=== PATIENT | male | born 1940 | race Caucasian/White ===

== ENCOUNTER 2017-03-16 11:52 | Inpatient (IN) ==
[2017-03-16] MEDS ORDERED: NS 1,000 ML IV ONE (12:24)
[2017-03-16] MEDS ORDERED: NS 500 ML IV ONE (12:24)
[2017-03-16] MEDS ORDERED: EPINEPHRINE 8 MG in D5W 250 ML IV SCH (12:30)
[2017-03-16] MEDS ORDERED: PITRESSIN 40 UNIT in NS 100 ML IV SCH (12:30)
--- NOTE | 2017-03-16 12:45 | EKG Report ---
Test Performed on : 03/16/2017 12:31:18 PM Test Reason : No Order [employer] Blood Pressure : / mmHG Vent. Rate : 218 BPM Atrial Rate : 220 BPM P-R Int : 000 ms QRS Dur : 062 ms QT Int : 184 ms P-R-T Axes : 000 072 -09 degrees QTc Int : 350 ms Atrial fibrillation. with rapid ventricular response. with premature ventricular or aberrantly condu cted complexes. ST \T\ T wave abnormality, consider inferior ischemia Abnormal ECG When compared with ECG of 16-MAR-2017 12:30, (Unconfirmed) Nonspecific T wave abnormality now evident in Anterolateral leads Unconfirmed Result
[2017-03-16] MEDS ORDERED: LIDOCAINE 2 GM/D5W 2 GM/500 ML IV.SOLN IV SCH (13:00)
[2017-03-16] MEDS: LEVOPHED 8 MG in D5 1/2 NS 250 ML IV SCH (13:00)
[2017-03-16] MEDS ORDERED: STERILE WATER INJ. ONE (13:07)
[2017-03-16] MEDS ORDERED: NORCURON ONE (13:07)
--- NOTE | 2017-03-16 13:11 | Diag Imaging Result Doc PS360 ---
EXAM: CHEST-PORTABLE HISTORY: ventilator TECHNIQUE: Portable supine AP COMPARISON: None. FINDINGS: There is an endotracheal tube with its tip located 3 cm above the gladys. The left lung is well expanded and clear except for granuloma in the mid lung. There are dense infiltrates in the mid and lower right lung. The heart is not enlarged. The vessels are not distended. IMPRESSION: Endotracheal tube in good position. Dense infiltrates in the lower right lung. Electronically signed by Jackson Langley 03/16/2017 1:09 PM
[2017-03-16] MEDS ORDERED: ZITHROMAX 500 MG/NS 500 MG/250 ML IVPB IV ONE (13:43)
[2017-03-16] MEDS ORDERED: ROCEPHIN 2 GM/NS 2 GM/50 ML IVPB IV ONE (13:43)
[2017-03-16 13:57] LABS: BASO% 0.1 % (0.0-0.8); EOS# 0.01 X1000 (0.0-0.7); EOS% 0.1 % (0.0-10.0); HEMATOCRIT 43.3 % (42.0-52.0); HEMOGLOBIN 13.3 g/dL (14.0-18.0); LYMPH# 0.76 X1000 (1.2-3.4); LYMPH% 8.1 % (20.5-51.1); MANUAL DIFF NEEDED? YES; MCH 29.8 PG (27-31); MCHC 30.7 g/dL (33-37); MCV 97.1 FL (81-99); MONO# 0.94 X1000 (0.11-0.59); MPV 11.8 FL (7.4-10.4); NEUT% 81.7 % (42.2-75.2); PLT 211 X1000 (130-400); RBC 4.46 XMIL (4.7-6.1)
[2017-03-16] MEDS ORDERED: NS IV SCH (14:00)
[2017-03-16] MEDS ORDERED: NORCURON IV SCH (14:00)
[2017-03-16] MEDS ORDERED: NS ONE (14:00)
[2017-03-16] MEDS ORDERED: LIDOCAINE SYRINGE ONE (14:00)
[2017-03-16] MEDS ORDERED: CORDARONE ONE (14:00)
[2017-03-16 14:01] LABS: INR 1.5; PROTIME 16.2 Seconds (9.2-11.7); PTT 34.9 Seconds (22.0-36.0)
[2017-03-16 14:07] LABS: BANDS 36 % (0-1); LYMPHS 11 % (21-51)
--- NOTE | 2017-03-16 14:33 | PROVIDER DOCUMENTATION ---
This chart was entered by Onesimo Campos Scribe, acting as scribe for Andrew Dutton MD. HPI-Critical Care - General Chief Complaint: Shortness of Breath Stated Complaint: respiratory distress Time Seen by Provider: 03/16/17 11:52 Patient arrived via EMS?: Yes Source: EMS, jail records Unable to obtain history due to:: urgency (due to patient condition) Allergies/Adverse Reactions: Allergies Allergy/AdvReac Type Severity Reaction Status Date / Time diazepam [From Valium] Allergy Unknown Verified 03/16/17 13:34 - History of Present Illness-Critical Care Nature of Presenting Problem: Per EMS, patient was brought in from [facility]. He was found unresponsive. He was breathing around 50 times a minute. He was tachycardiac. He was placed on NRB and brought in by EMS. History is unable to be taken due to patient's condition and urgency of situation. Location of Pain/Injury: reports: none Severity in ED: reports: severe Onset/Duration: reports: unsure Timing: reports: still present, getting worse EMS Initial Findings:: unresponsive Pre-hospital Treatment: Initiated oxygen Associated Symptoms: reports: shortness of breath, other (unresponsive) Loss of Consciousness: still comatose Improves Condition (Modifying Factors): improves with: nothing Recently Seen Here or By Another Healthcare Provider: No Review of Systems - Adult - REVIEW OF SYSTEMS - ADULT ROS:: unobtainable per condition Constitutional: reports: see HPI Eyes: reports: see HPI Ears, Nose, Mouth & Throat: reports: see HPI Cardiovascular: reports: see HPI Respiratory: reports: shortness of breath Gastrointestinal: denies: diarrhea, vomiting Genitourinary: reports: see HPI Musculoskeletal: reports: see HPI Integumentary: reports: see HPI Neurological: reports: see HPI Psychiatric: reports: see HPI Endocrine: reports: see HPI Hematologic/Lymphatic: reports: see HPI Allergic/Immunologic: reports: see HPI Past History - Adult - PAST MEDICAL HISTORY-ADULT Review of Records: reports: Nursing Assessment Review, Medications Reviewed Cardiovascular: reports: blood clots, other (peripheral edema) Neurological: reports: dementia Psychiatric: reports: psychiatric problems - PRIOR SURGERIES/PROCEDURES Surgical/Procedure History: reports: other (unknown) - IMMUNIZATION STATUS Childhood Immunizations: See Nurse Assessment Flu Vaccine: See Nurse Assessment - FAMILY HISTORY Family History: reviewed, not pertinent - SOCIAL HISTORY Living Situation: care facility Physical Exam-General - PHYSICAL EXAM-ADULT Exam Limited by: patient condition Initial Vital Signs Reviewed: Yes - CONSTITUTIONAL General Appearance: severe distress, other (unresponsive) - EYES Eyes: pink conjunctivae. negative: anisocoria, pale conjunctivae - HEAD, EARS, NOSE, MOUTH & THROAT HENMT: normocephalic/atraumatic, other (dry oral mucosa) - RESPIRATORY Respiratory: respiratory distress (severe), retractions, increased rate (in the 50s) - CARDIOVASCULAR Cardiovascular: no gallop, tachycardia - GASTROINTESTINAL (ABDOMEN) Abdominal Exam: non tender, soft - MUSCULOSKELETAL Extremity: no pedal edema, slow capillary refill. negative: erythema - SKIN Integumentary: cyanosis, pallor - NEUROLOGIC Neurologic: other (unable to test due to patient condition) - PSYCHIATRIC Psych/Mental Status: other (unresponsive) Progress - PLAN OF CARE/RESULTS Progress/Plan/Lab Results: Vital Signs - 8 hr 03/16/17 12:00 Pulse Rate 149 H Respiratory Rate 51 H Blood Pressure 73/45 O2 Sat by Pulse Oximetry 82 L Laboratory Results - last 24 hr 03/16/17 03/16/17 03/16/17 13:41 13:41 13:41 WBC 9.41 RBC 4.46 L Hgb 13.3 L Hct 43.3 MCV 97.1 MCH 29.8 MCHC 30.7 L RDW Std Deviation 17.7 H Plt Count 211 MPV 11.8 H Neut % (Auto) 81.7 H Lymph % (Auto) 8.1 L Robertson % (Auto) 10.0 H Eos % (Auto) 0.1 Baso % (Auto) 0.1 Neut # (Auto) 7.69 H Lymph # (Auto) 0.76 L Robertson # (Auto) 0.94 H Eos # (Auto) 0.01 Baso # (Auto) 0.01 Segmented Neutrophils 46 Band Neutrophils 36 H Lymphocytes 11 L Metamyelocytes 7.0 PT INR PTT (Actin FS) D-Dimer 1.47 H Troponin T 0.094 H 03/16/17 13:41 WBC RBC Hgb Hct MCV MCH MCHC RDW Std Deviation Plt Count MPV Neut % (Auto) Lymph % (Auto) Robertson % (Auto) Eos % (Auto) Baso % (Auto) Neut # (Auto) Lymph # (Auto) Robertson # (Auto) Eos # (Auto) Baso # (Auto) Segmented Neutrophils Band Neutrophils Lymphocytes Metamyelocytes PT 16.2 H INR 1.50 PTT (Actin FS) 34.9 D-Dimer Troponin T Orders Category Date Time Status Calhoun Cath Insertion ORDERED Care 03/16/17 12:24 Active IV Insertion ORDERED Care 03/16/17 12:24 Completed Intake and Output-Strict ORDERED Care 03/16/17 12:24 Active Notify MD/PA/FATMATA for exam NOW Care 03/16/17 12:24 Active Repeat Vital Signs .Blood Pressure Care 03/16/17 12:24 Active Repeat Vital Signs .Heart Rate Care 03/16/17 12:24 Active Repeat Vital Signs .Oxygen Saturation Care 03/16/17 12:24 Active Repeat Vital Signs .Respiratory Rate Care 03/16/17 12:24 Active Repeat Vital Signs .Temp Care 03/16/17 12:24 Active CHEST-PORTABLE [RAD] Stat Exams 03/16/17 12:50 Completed CTA [ANGIOGRAM/PULMONARY ARTERIES] [CT] Stat Exams 03/16/17 12:48 Ordered BLOOD CULTURE [BLDCUL] Stat Lab 03/16/17 12:40 Results CBC WITH DIFF [HEME] Stat Lab 03/16/17 13:41 Completed COMPREHENSIVE METABOLIC PANEL [CHEM] Stat Lab 03/16/17 13:41 Received D-DIMER [CHEM] Stat Lab 03/16/17 13:41 Completed LACTATE, PLASMA [CHEM] Stat Lab 03/16/17 13:41 Received PROTIME WITH INR [COAG] Stat Lab 03/16/17 13:41 Completed PTT [COAG] Stat Lab 03/16/17 13:41 Completed TROPONIN T Stat Lab 03/16/17 13:41 Completed 0.9% Sodium Chloride Inj [Ns] 1,000 ml Med 03/16/17 12:24 Discontinued IV As Directed 0.9% Sodium Chloride Inj [Ns] 100 ml Med 03/16/17 12:30 Active Vasopressin [Pitressin] 40 unit IV As Directed 0.9% Sodium Chloride Inj [Ns] 500 ml Med 03/16/17 12:24 Discontinued IV 999 mls/hr 0.9% Sodium Chloride Inj [Ns] 80 ml Med 03/16/17 14:00 Active Vecuronium [Norcuron] 20 mg IV As Directed Azithromycin 500 mg/Ns [Zithromax 500 mg/Ns] Med 03/16/17 13:43 Active 500 mg in 250 ml IV NOW CefTRIAXONE 2 GM/NS [Rocephin 2 gm/Ns] Med 03/16/17 13:43 Discontinued 2 gm in 50 ml IV NOW Dextrose 5%-0.45% NaCl Inj [D5 1/2 Ns] 250 ml Med 03/16/17 12:30 Active Norepinephrine [Levophed] 8 mg IV As Directed Dextrose 5%-Water Inj [D5w] 250 ml Med 03/16/17 12:30 Active Epinephrine 8 mg IV As Directed Lidocaine 2 gm/D5w Med 03/16/17 13:00 Active 2 gm in 500 ml IV As Directed Vecuronium [Norcuron] Med 03/16/17 13:07 Discontinued 10 mg .ROUTE .STK-MED ONE Water, Sterile Inj [Sterile Water Inj] Med 03/16/17 13:07 Discontinued 10 ml .ROUTE .STK-MED ONE EKG [EKG] Routine Ther 03/16/17 12:31 Draft due to patient condition. will place central line and intubate patient. 1230- at bedside due to patient being in V-tach. he did have a pulse. He was given 100 mg of lidocaine that improve HR. He was started on Levophed for his hypotension 1242- speaking with family regarding patient condition, patient was recently in jail 3 weeks ago. went in happy and upbeat and his condition began to decline after 1323- at bedside, patient was place on Norcuron drip, Lidocaine drip. Pulse improved Result Diagrams: 03/16/17 13:41 - EKG 1 Time of EKG reading by physician:: 12:30 EKG Read and Signed by:: Andrew Dutton EKG Interpretation (*Must complete 3 of following elements*): Abnormal Rate: 206 Rhythm: a-fib with rvr with PVCs QRS: normal ST Wave: non-specific ST changes 2 Time of EKG reading by physician:: 12:30 EKG Read and Signed by:: Andrew Dutton EKG Interpretation (*Must complete 3 of following elements*): Abnormal Rate: 166 Rhythm: sinus tachycardia Littcarr: normal QRS: normal ST Wave: non-specific ST changes - XRAY 1 XRAY Study: Chest Impression: Abnormal XRAY Interpretation: ET tube in good position, dense infiltrates right lung Procedures - CENTRAL LINE Time-Out Verification Completed?: Yes Central Line Lumen: single Catheter: Tamazight: 18 Central Line Procedure Prep: Hand Hygeine Performed, Kit Utilized, Chloraprep, Betadine, Sterile Body Drape Placed, Antibiotic-coated Catheter Used Patient Position (To prevent Air Embolism): Supine (Femoral) Central Line Position: femoral (R) Ultrasound Guided?: No Hat, mask, sterile gown, & sterile gloves worn by physician?: Yes Site scrubbed vigorously for 30 seconds? (Groin: 2 min): Yes Anesthetic: 1%, Lidocaine/Xylocaine Volume of Anesthetic (ml's): 5 Complications: unsuccessful placed due to hypotension in patient and thickening of blood - INTUBATION Time of Intubation: 12:15 Mallampati Class: 1 Intubation Method: orotracheal Equipment: ETT Tube Size (cm): 8.0 Pretreated with 100% Oxygen?: Yes Breath Sounds after Intubation: equal ETT Primary Tube Confirmation: Capnometry CO2 Change, Direct Visualization, Chest Rise and Fall Intubation Complications: no complications Vent Settings: See Respiratory Therapy Notes Departure - Departure Date of Disposition Decision: 03/16/17 Time of Disposition Decision: 14:32 DIAGNOSIS: Respiratory failure, Altered mental state, Hypovolemia due to dehydration, Pneumonia Disposition: ADMITTED INPATIENT 09 Certified Medical Emergency: Emergent Condition: Critical Referrals and Follow-Ups: Wilton Yuan MD [Primary Care Provider] - - Critical Care Note This patient required my direct & personal management of CC.: Yes Total Time (mins): 180 Critical Care Statement: This patient required my direct personal management to treat or rule out processes, the absence of which, could potentiallly result in sudden, clinically significant life or limb threatening deterioration. This chart was documented by the indicated scribe, (Onesimo Campos, Pedro) and accurately reflects the services I performed and decisions made by me, Andrew Dutton MD, as attested by the provider's signature.
[2017-03-16 14:45] LABS: ALBUMIN 1.8 g/dL (3.5-5.0); POTASSIUM 4.3 mmol/L (3.5-5.1); TOTAL BILIRUBIN 0.84 mg/dL (0.20-1.00); TOTAL PROTEIN 5.2 g/dL (6.3-8.3)
[2017-03-16] MEDS ORDERED: DIPRIVAN 1% 1,000 MG/100 ML BOTTLE IV SCH ×2 (14:46→20:24)
[2017-03-16] MEDS ORDERED: SODIUM BICARBONATE 8.4% 150 MEQ in D5W 1,000 ML IV SCH (14:55)
[2017-03-16] MEDS ORDERED: SODIUM BICARBONATE 8.4% IV PUSH ONE (14:56)
[2017-03-16 14:57] LABS: BE -13.3 mmoll (-3.0-3.0); BLOOD TYPE ARTERIAL; METHB 0.7 % (0.0-1.5); O2(CT) 20.4 mL/dL (15.0-23.0); PCO2(98.6) 42 mmHg (35-45); PO2(98.6) 102 mmHg (60-100); SAMPLE BLOOD; SAO2 98.4 % (95.0-100.0); SRATE 18 BPM; THB 15.1 g/dL (11.5-17.4); TVOL 450 mL
[2017-03-16 14:59] LABS: ALLEN TEST YES; DRAW SITE R BRACHIAL
[2017-03-16] MEDS ORDERED: ZOSYN 2.25 GM/NS 2.25 GM/50 ML IVPB IV ONE (15:00)
[2017-03-16] MEDS ORDERED: VANCOMYCIN IV PER PHARMACY MISC SCH (15:00)
[2017-03-16] MEDS ORDERED: NS 2,000 ML IV ONE (15:01)
[2017-03-16] MEDS ORDERED: NS 1,000 ML IV SCH (15:01)
[2017-03-16] MEDS ORDERED: MAGNESIUM SULFATE IV ONE (15:03)
[2017-03-16] MEDS ORDERED: LIDOCAINE SYRINGE IV ONE ×2 (15:03→15:05)
[2017-03-16] MEDS ORDERED: CORDARONE IV ONE (15:03)
[2017-03-16 15:04] LABS: MODALITY VENTILATOR; pH(98.6) 7.16 (7.35-7.45)
[2017-03-16 15:23] LABS: MAGNESIUM 3.6 mg/dL (1.5-2.7)
[2017-03-16 15:25] LABS: ACETAMINOPHEN < 1.2 ug/mL (10-30)
[2017-03-16 15:28] LABS: UR SODIUM < 10 mmoll
[2017-03-16 15:33] LABS: ACETONE SERUM NEGATIVE (NEGATIVE)
[2017-03-16] MEDS ORDERED: DUONEB (A & A) INH PRN (15:50)
[2017-03-16] MEDS ORDERED: SODIUM CHLORIDE 0.9% INJ SCH (15:50)
[2017-03-16] MEDS ORDERED: NORCURON IV ONE (15:53)
[2017-03-16] MEDS ORDERED: QUELICIN IV ONE (15:54)
[2017-03-16] MEDS ORDERED: AMIDATE IV ONE (15:54)
[2017-03-16] MEDS ORDERED: VANCOMYCIN 1,850 MG in NS 500 ML IV ONE (16:00)
[2017-03-16] MEDS ORDERED: MAGNESIUM SULFATE 2 GM/S.W.I. 2 GM/50 ML IVPB IV ONE (16:00)
--- NOTE | 2017-03-16 17:01 | HISTORY AND PHYSICAL ---
PRIMARY CARE PHYSICIAN: Dr. Yuan at [facility]. CHIEF COMPLAINT: Respiratory failure. HISTORY OF PRESENT ILLNESS: Mr. Neumann is a 77-year-old male with a history of DVT on the right and Lewy Body dementia. Patient is intubated and sedated at this time and is unable to give any type of history. His family at the bedside is able to answer fairly detailed history questions. He was at [facility] a few weeks back and was ultimately transferred to [facility]. Family states that he had been becoming more agitated over the past few weeks and required mental health evaluation on admission. He has been getting multiple heavy sedatives and was ultimately transferred to [facility]. Family reports that at [facility], they were trying to wean him off of some of the psychotropics. His family reports that he started to not look good on Tuesday, worsening almost every day until yesterday and this morning he was sent to the ER for hypotension and tachycardia. When he got to the ER he was in respiratory failure requiring immediate intubation. His chest x-ray showed a dense right lower lobe pneumonia and his lab work showed severe metabolic acidosis with renal failure, slightly elevated troponins and hypoalbuminemia with a profound lactic acidosis of 9.1. In the ER, the patient was going in and out of ventricular tachycardia, and reportedly ventricular fibrillation. We do not have documentation of this. The patient has been treated with IV lidocaine and amiodarone. He was also noted to be in atrial fibrillation with a rapid response at times. He is currently in sinus rhythm, bordering on sinus tachycardia at 100 beats per minute. He has required vasopressors for blood pressure support. He is now going to be admitted to the ICU for further treatment and evaluation. PAST MEDICAL HISTORY: 1. Lewy Body dementia. 2. DVT in the right lower extremity. On Eliquis therapy. 3. Bipolar disorder. SURGICAL HISTORY: None. SOCIAL HISTORY: No history of tobacco, alcohol or drug use. The patient is . His is currently at [facility], admitted with bacteremia. He has a daughter and son at the bedside. REVIEW OF SYSTEMS: Unable to obtain. FAMILY HISTORY: Noncontributory. HOME MEDICATIONS: Eliquis 5 mg b.i.d., Colace 10 mg at bedtime, vitamin D3 5000 units p.o. daily, Depakote 750 mg p.o. at bedtime, Lasix 20 mg daily, Haldol 1.5 mg b.i.d., Ativan 0.25 mg p.o. at bedtime, Amitiza 24 mg p.o. as directed, Megace 400 mg p.o. b.i.d., melatonin 5 mg daily, Namenda XR 28 mg p.o. daily, potassium chloride 10 mEq p.o. daily, Restoril 15 mg p.o. daily. ALLERGIES: Valium. PHYSICAL EXAMINATION: VITAL SIGNS: Blood pressure is 105/80, heart rate 112, respiratory rate is 16, O2 saturation 94% on 100% mechanical ventilation. GENERAL: This is a chronically ill-appearing, 77-year-old male, lying in a hospital bed intubated and sedated. NEUROLOGIC: The patient is currently intubated and sedated which precludes neurologic evaluation. HEENT: Head is atraumatic and normocephalic. His pupils are equal and sluggish bilaterally. Oral mucosa is dry. Trachea is midline. No JVD. CHEST: Coarse with crackles over the right lung base. CARDIOVASCULAR: Tachy and regular. S1-S2 is noted. GI: Soft, nondistended, nontender. Bowel sounds positive. EXTREMITIES: Cool to touch with diminished pulses, thready bilaterally. DIAGNOSTIC DATA: WBC 9.41, hemoglobin 13, hematocrit 43, platelet count 211,000. INR 1.5, PTT 34.9, pH 7.16, PCO2 is 42, O2 is 102, bicarb 14.5, base excess -13.3. Sodium 158, potassium 4.3, chloride 123, CO2 13, anion gap 25, BUN 73, creatinine 2.4, glucose 152, calcium 8, phosphorus 7.2, magnesium 3.6, bilirubin 0.84, AST 17, ALT 14, alkaline phosphatase 41, CK 87. Troponin 0.094. Protein 5.2, albumin 1.8. Lactic acid 9.1, TSH 1.72. ASSESSMENT/PLAN: 1. Acute hypoxic respiratory failure: Likely secondary to pneumonia, which is likely a combination of aspiration and health care associated. The patient has been intubated. We will continue breathing treatments, antibiotics, aggressive pulmonary toilet, daily chest x- rays and arterial blood gases. We will consult Pulmonary Critical Care. 2. Septic shock: Source again is likely to be his pneumonia. Cultures have been obtained and we have started triple antibiotics with vancomycin, Levaquin and Zosyn, all renally dosed. He is on Levophed. We are continuing aggressive fluid resuscitation. 3. Right lower lobe pneumonia: Likely aspiration plus or minus healthcare associated pneumonia. He is being adequately covered with antibiotics. We will continue breathing treatments and aggressive pulmonary toilet. Pulmonary Critical Care has been consulted. 4. Acute kidney injury: Prerenal secondary to volume depletion. We will continue IV fluids, check urine studies, we are also going to check an abdominal computed tomography. 5. Hypernatremia: This is secondary to volume depletion. We will continue aggressive IV fluid resuscitation and trend his sodium. 6. Severe metabolic acidosis: We are starting a bicarbonate drip and given an IV push. We will check arterial blood gas in a few hours. We will continue fluid resuscitation for lactic acidosis. 7. Paroxysmal ventricular tachycardia and questionable ventricular fibrillation: In all likelihood, this is sepsis mediated. His severe volume depletion and sepsis cause compensatory tachycardia which has likely overwhelmed his myocardium to the point of malignant arrhythmia. We will trend his cardiac enzymes and check an echocardiogram. 8. Deep vein thrombosis prophylaxis with subcutaneous heparin secondary to renal failure. Proton pump inhibitor or gastrointestinal prophylaxis with IV Nexium as he is intubated. CRITICAL CARE TIME WITH THE PATIENT: Greater than 45 minutes. Dictated by FATMATA Rasmussen for Kristopher Dhaliwal MD cc: FATMATA Rasmussen MD Daniel Gifford II, MD
[2017-03-16] MEDS: NEXIUM IV SCH (17:21)
[2017-03-16] MEDS: ALBUMIN 25% IV SCH ×2 (17:21→22:23)
[2017-03-16] MEDS: ZOSYN 2.25 GM/NS 2.25 GM/50 ML IVPB IV SCH ×2 (17:21→22:22)
[2017-03-16] MEDS: LEVAQUIN 250 MG/D5W 250 MG/50 ML IVPB IV SCH (17:21)
--- NOTE | 2017-03-16 17:29 | Diag Imaging Result Doc PS360 ---
HEAD W/O CONTRAST - 03/16/2017 INDICATION: resp failure TECHNIQUE: A CT dose reduction protocol was used. COMPARISON: None FINDINGS: There is moderate diffuse atrophy. There is advanced cerebral white matter, midbrain and pontine white matter chronic microvascular disease. No intracranial mass or hemorrhage. No skull fracture. The sinuses, mastoids, and middle ears are clear. IMPRESSION: Atrophy and chronic microvascular disease. No acute disease. Electronically signed by Demetrius Tong 03/16/2017 5:26 PM
--- NOTE | 2017-03-16 17:34 | Diag Imaging Result Doc PS360 ---
THORAX/ABDOMEN/PELVIS W/O CONT - 03/16/2017 INDICATION: septic shock TECHNIQUE: A CT dose reduction protocol was used. COMPARISON: None FINDINGS: CHEST: There is an endotracheal tube in good position. The esophagus is somewhat distended with fluid. Heart size is normal with no pericardial effusion. There are some shotty mediastinal lymph nodes but no adenopathy. There are significant multifocal bilateral infiltrates worse in the lower lobes, but affecting both upper lobes as well. There are trace pleural effusions. Abdomen pelvis: Numerous gallstones in the gallbladder. Small 1.5 cm cyst in the liver. There is a mass at the lower pole of the right kidney measuring about 4 cm. There are a couple of tiny nonobstructing right renal cysts measuring 2 mm. No bowel obstruction or inflammation there is scoliosis and heavy degeneration throughout the thoracolumbar spine. No acute bony lesions.. There is moderate rectal stool impaction. Calhoun catheter in the urinary bladder. Urinary bladder and prostate are grossly normal. IMPRESSION: 1. Multilobar bilateral pulmonary infiltrates suspicious for pneumonia or aspiration. 2. Esophagus is rather dilated with fluid, but no distal bowel obstruction. 3. Cholelithiasis. 4. Suspicious right renal mass. 5. Small nonobstructing right renal stones. 6. Rectal stool impaction without obstruction. Electronically signed by Demetrius Tong 03/16/2017 5:32 PM
--- NOTE | 2017-03-16 18:54 | Diag Imaging Result Doc PS360 ---
CHEST/ABD TUBE PLACEMENT - 03/16/2017 1838 INDICATION: OG tube TECHNIQUE: COMPARISON: 1239 FINDINGS: There is a new orogastric tube with the tip in the stomach. Stable endotracheal tube in good position. Grossly stable extensive bibasilar infiltrates right greater than left. IMPRESSION: Good orogastric tube placement in the stomach. Electronically signed by Demetrius Tong 03/16/2017 6:52 PM
[2017-03-16] MEDS: DUONEB (A & A) INH SCH (20:51)
[2017-03-16] MEDS: SODIUM BICARBONATE 8.4% 150 MEQ in D5W 1,000 ML IV SCH (22:22)
[2017-03-16] MEDS: CALMOSEPTINE OINTMENT TOP PRN (22:23)
[2017-03-17] MEDS: LEVOPHED 8 MG in D5 1/2 NS 250 ML IV SCH ×3 (00:42→15:27)
[2017-03-17] MEDS: DUONEB (A & A) INH SCH ×4 (03:17→21:05)
--- NOTE | 2017-03-17 03:51 | CONSULTATION ---
DATE OF CONSULTATION: 03/16/2017 REQUESTING PHYSICIAN: Dr. Arteaga. REASON FOR CONSULTATION: Respiratory failure. HISTORY OF PRESENT ILLNESS: Mr. Neumann is a 77-year-old, white male with a prior tobacco history, Lewy body dementia, who has had difficulty with progressive agitation requiring multiple sedatives. The patient was admitted to [facility] and his psychotropics were being weaned. He was brought to the emergency room with progressive obtundation, hypotension, and tachycardia. CT scan of the brain reveals no acute changes. CT scan of the chest, abdomen, and pelvis reveals multiple bilateral infiltrates with consolidation in both lung bases, nephrolithiasis, fluid in the esophagus, rectal impaction, and a mass in the lower pole of the right kidney. The patient was intubated and initiated on mechanical ventilation. He is on Levophed for hypotension despite antibiotics and fluid resuscitation. PAST MEDICAL HISTORY/PROBLEM LIST: 1. Lewy body dementia. 2. History of deep vein thrombosis, on Eliquis. 3. Bipolar disorder. SOCIAL HISTORY: Prior tobacco use. His is currently in the hospital with an infection. REVIEW OF SYSTEMS: Cannot be obtained. PHYSICAL EXAMINATION: General: Reveals a thin, chronically ill-appearing, white male on mechanical ventilation. He is on Levophed for hypotension. Vital Signs: BP 97/70, heart rate 108, respiration rate 26, oxygen saturation 97%. HEENT: Pupils are equal but sluggish. Oropharynx is dry. Neck: Supple. Chest: Reveals coarse rhonchi bilaterally. Cardiac Examination: Increased rate, regular rhythm. Abdomen: Scaphoid and soft. Extremities: Without edema. LABORATORY: CT scan of the head, chest, abdomen, and pelvis as per above. Chemistry: Sodium 158, potassium 4.3, chloride 123, bicarbonate 13, anion gap 25, BUN 73, creatinine 2.4. Albumin 1.8. Plasma lactate 9.1. Arterial blood gas, pH 7.16, pCO2 of 42, PO2 of 102, with a lactate of 6.5. IMPRESSION: A 77-year-old with dementia who presents with dehydration, hypernatremia, acute hypoxemic respiratory failure, altered mental status, aspiration pneumonia, lactic acidosis, and acute renal failure. CT scan also reveals a renal mass. RECOMMENDATIONS: 1. Continue full ventilatory support for acute hypoxemic respiratory failure. 2. Agree with antibiotics for aspiration pneumonia. 3. Continue IV fluids for hypernatremia and hypovolemia. If his sodium concentration does not drop by tomorrow, we will consider giving more hypotonic fluids but currently would shoot for a normal saline range sodium. 4. Discuss prognosis with the family given his known diagnosis of Lewy body dementia along with increasing difficulty with agitation. 5. Continue fluids for acute renal failure. 6. Treatment for impaction when he hemodynamically improves. 7. Additional recommendations pending hospital course. cc: Randall Swan MD
[2017-03-17] MEDS: ZOSYN 2.25 GM/NS 2.25 GM/50 ML IVPB IV SCH ×4 (04:11→21:42)
[2017-03-17] MEDS: ALBUMIN 25% IV SCH ×2 (04:12→09:22)
[2017-03-17 04:29] LABS: ALLEN TEST YES; BE 2.1 mmoll (-3.0-3.0); BLOOD TYPE ARTERIAL; DRAW SITE R RADIAL; MODALITY VENTILATOR; O2(CT) 15.7 mL/dL (15.0-23.0); PCO2(98.6) 28 mmHg (35-45); PO2(98.6) 81 mmHg (60-100); SAMPLE BLOOD; SAO2 98.5 % (95.0-100.0); SRATE 18 BPM; THB 11.6 g/dL (11.5-17.4); TVOL 600 mL; pH(98.6) 7.54 (7.35-7.45)
[2017-03-17] MEDS ORDERED: LOPRESSOR ONE (05:01)
--- NOTE | 2017-03-17 05:20 | EKG Report ---
Test Performed on : 03/17/2017 05:02:27 AM Test Reason : No ORder in Chiasma Blood Pressure : / mmHG Vent. Rate : 162 BPM Atrial Rate : 156 BPM P-R Int : 000 ms QRS Dur : 074 ms QT Int : 250 ms P-R-T Axes : 000 059 264 degrees QTc Int : 410 ms Atrial fibrillation. with rapid ventricular response. Nonspecific ST and T wave abnormality Abnormal ECG No previous ECGs available Confirmed by Lillian Diaz MD ([id number]) on 03/22/2017 6:00:30 AM
[2017-03-17 05:47] LABS: BILIRUBIN URINE NEGATIVE (NEGATIVE); BLOOD URINE MODERATE (NEGATIVE); COLOR YELLOW; GLUCOSE URINE NEGATIVE (NEGATIVE); LEUKOCYTES URINE NEGATIVE (NEGATIVE); NITRITE URINE NEGATIVE (NEGATIVE); PROTEIN URINE 50 mg/dL (NEGATIVE); SP GRAVITY URINE 1.019; TURBIDITY URINE CLEAR (CLEAR); URINE CULTURE NEEDED? NO; URINE SOURCE CATH; UROBILINOGEN URINE NORMAL (NORMAL)
[2017-03-17 05:49] LABS: URINE MICRO REVIEW NEEDED? YES
[2017-03-17 06:03] LABS: HEMATOCRIT 35.8 % (42.0-52.0); HEMOGLOBIN 11.2 g/dL (14.0-18.0); MCH 28.9 PG (27-31); MCHC 31.3 g/dL (33-37); MCV 92.5 FL (81-99); RBC 3.87 XMIL (4.7-6.1)
[2017-03-17] MEDS: SODIUM BICARBONATE 8.4% 150 MEQ in D5W 1,000 ML IV SCH (06:13)
[2017-03-17] MEDS: CARDIZEM 100 MG/NS 100 MG/100 ML IVPB IV SCH ×3 (06:13→18:25)
[2017-03-17 06:14] LABS: CALCIUM 8.1 mg/dL (8.8-10.2); POTASSIUM 3.7 mmol/L (3.5-5.1)
[2017-03-17 06:34] LABS: UR EPITHELIAL CELLS <10 /HPF (<10); URINE BACTERIA NEGATIVE /HPF; URINE RBC <10 /HPF (<10); URINE WBC <10 /HPF (<10)
--- NOTE | 2017-03-17 07:25 | Diag Imaging Result Doc PS360 ---
CHEST-PORTABLE - 03/17/2017 INDICATION: dyspnea TECHNIQUE: COMPARISON: 03/16/2017 FINDINGS: Support lines and tubes are stable. There is improvement in the bibasilar infiltrates right greater than left. No pneumothorax or significant effusion. IMPRESSION: Significant improvement in the bibasilar infiltrates. Electronically signed by Demetrius Tong 03/17/2017 7:23 AM
[2017-03-17 09:28] LABS: ALBUMIN 2.5 g/dL (3.5-5.0); DIRECT BILIRUBIN 0.2 mg/dL (0.00-0.20); TOTAL BILIRUBIN 0.75 mg/dL (0.20-1.00); TOTAL PROTEIN 5.4 g/dL (6.3-8.3)
--- NOTE | 2017-03-17 11:06 | PROGRESS NOTE ---
DATE: 03/17/2017 SUBJECTIVE: This patient is still on mechanical ventilation and sedated. He has poor prognosis. I had a really large conversation with the family, including daughter and son. His has the power of state attorney, but she is hospitalized at this moment, so since his cannot make decisions right now, the daughter and son are authorized to make decisions. They have placed this patient do not resuscitate. They will probably withdraw care if the patient's condition gets worse. OBJECTIVE: Vital Signs: Temperature 98.1 degrees, pulse 125, respiratory rate 26, blood pressure 85/59, oxygen saturation 100% on 50% oxygen flow mechanical ventilation. HEENT: Head normocephalic. No trauma. PERRLA. Neck: Supple. No JVD. No masses. Central trachea. Chest: Coarse breath sounds with generalize crackles, mostly at the level of the right lung base. Cardiovascular: Irregularly irregular rate and rhythm. Tachycardic. Abdomen: Soft, nontender, nondistended. Positive bowel sounds. Extremities: No edema. No cyanosis. They are cool to touch with diminished pulses. LABORATORY: WBC 10.5, hemoglobin 11.2, hematocrit 35.8, platelet 143,000. Sodium 157, potassium 3.7, chloride 118, bicarbonate 21, BUN 65, creatinine 1.8, glucose 137, calcium 8.1, albumin 2.5. ASSESSMENT AND PLAN: 1. Acute hypoxemic respiratory failure, likely secondary to pneumonia, which is probably an aspiration pneumonia. He is still on mechanical ventilation. We will continue with breathing treatment, antibiotics, pulmonary toilet, x-ray, and blood gases. Pulmonary department is following this patient. 2. Septic shock. He is still on pressors. Continue with antibiotics. They are all renally dosed and continue with fluid resuscitation. 3. Right lower lobe pneumonia. This is likely aspiration pneumonia and is covered with antibiotics and breathing treatment. Continue to monitor. 4. Acute kidney injury, likely prerenal. It is getting better. Continue with IV fluids and albumin. 5. Hypernatremia. I think this is likely secondary to volume depletion. He received aggressive IV fluid resuscitation. Continue with the same management for now. He is getting D5W at 125 with bicarbonate. 6. Afebrile with rapid ventricular rate, stable. Continue to monitor. 7. Deep vein thrombosis prophylaxis. Continue with heparin. 8. Gastrointestinal prophylaxis. Since this patient is intubated, we will continue with proton pump inhibitors. Time discussing this patient's the status, with the family and talking about the different treatment options, discussing the DNR status with the power of state attorney took me about 30 minutes. CRITICAL CARE TIME: Evaluated this patient was 35 minutes. cc: Kristopher Dhaliwal MD
[2017-03-17 12:49] LABS: MAGNESIUM 2.5 mg/dL (1.5-2.7)
--- NOTE | 2017-03-17 13:15 | ECHO REPORT ---
ORDER DATE: 03/16/2017 INDICATION: Ventricular tachycardia. FINDINGS: This is an extremely poor quality study with limited views. There is very poor endocardial resolution. 1. Left ventricular systolic function is likely normal. The ejection fraction cannot be estimated very accurately, but does appear to be greater than 50%. The segmental wall motion analysis cannot be performed adequately secondary to poor resolution of the endocardial borders. 2. The right ventricle appears to be normal in size with normal systolic function. 3. No mitral valve prolapse. Aortic valve appears to open well. Very limited color and spectral Doppler evaluations performed. 4. No pericardial effusion seen. cc: MD Kike Ramirez CRNP
[2017-03-17] MEDS: NEXIUM IV SCH (15:14)
[2017-03-17] MEDS: LEVAQUIN 250 MG/D5W 250 MG/50 ML IVPB IV SCH (15:14)
[2017-03-17] MEDS: SODIUM BICARBONATE 8.4% 100 MEQ in D5W 1,000 ML IV SCH (17:02)
[2017-03-17] MEDS ORDERED: TYLENOL PR PRN (20:29)
[2017-03-18] MEDS: CARDIZEM 100 MG/NS 100 MG/100 ML IVPB IV SCH ×3 (00:40→17:39)
[2017-03-18] MEDS: LEVOPHED 8 MG in D5 1/2 NS 250 ML IV SCH ×2 (00:40→09:48)
[2017-03-18] MEDS: DUONEB (A & A) INH SCH ×4 (03:20→19:58)
[2017-03-18] MEDS: ZOSYN 2.25 GM/NS 2.25 GM/50 ML IVPB IV SCH ×4 (03:50→20:50)
[2017-03-18] MEDS: SODIUM BICARBONATE 8.4% 100 MEQ in D5W 1,000 ML IV SCH (03:50)
[2017-03-18 04:22] LABS: ALLEN TEST YES; BE 10.5 mmoll (-3.0-3.0); BLOOD TYPE ARTERIAL; DRAW SITE R RADIAL; METHB 1.1 % (0.0-1.5); O2(CT) 16.9 mL/dL (15.0-23.0); PCO2(98.6) 33 mmHg (35-45); PO2(98.6) 88 mmHg (60-100); SAMPLE BLOOD; SAO2 98.8 % (95.0-100.0); SRATE 12 BPM; THB 12.4 g/dL (11.5-17.4); TVOL 600 mL
[2017-03-18 04:23] LABS: MODALITY VENTILATOR
[2017-03-18 05:33] LABS: HEMATOCRIT 33.8 % (42.0-52.0); HEMOGLOBIN 10.7 g/dL (14.0-18.0); MCH 29.6 PG (27-31); MCHC 31.7 g/dL (33-37); MCV 93.6 FL (81-99); RBC 3.61 XMIL (4.7-6.1)
[2017-03-18] MEDS: VANCOMYCIN 1,500 MG in NS 250 ML IV SCH (05:48)
--- NOTE | 2017-03-18 06:10 | Diag Imaging Result Doc PS360 ---
EXAM: CHEST-PORTABLE HISTORY: dyspnea TECHNIQUE: COMPARISON: 03/17/2017 FINDINGS: No change in the endotracheal tube. There are dense infiltrates in the right base with smaller infiltrates in the left base. The findings in the left base are more pronounced. Heart is not enlarged. No pleural effusions identified. There is a granuloma in the mid left lung. IMPRESSION: Overall worsening. Electronically signed by Jackson Langley 03/18/2017 6:08 AM
[2017-03-18 06:12] LABS: POTASSIUM 2.8 mmol/L (3.5-5.1)
[2017-03-18] MEDS: D5W 1,000 ML IV SCH ×2 (08:45→17:39)
[2017-03-18] MEDS: POTASSIUM CHLORIDE 20 MEQ/SWI 20 MEQ/100 ML IVPB IV SCH ×2 (08:45→11:02)
--- NOTE | 2017-03-18 11:21 | PROGRESS NOTE ---
DATE: 03/18/2017 SUBJECTIVE: This patient is still on mechanical ventilation. He is not on any kind of sedation. He is not alert. He withdraws with pain and stimulation. No family members at the bedside. He is still on pressors. OBJECTIVE: Vital Signs: Temperature 99 degrees, pulse 84, respiratory rate 15, blood pressure 108/56, oxygen saturation 100% on 50% FiO2 mechanical ventilation. HEENT: Head normocephalic. No trauma. PERRLA. Neck: Supple. No JVD. No masses. Central trachea. Chest: Coarse breath sounds with generalized crackles mostly at the level of the right lower base. Cardiovascular: Irregularly irregular rate and rhythm. Tachycardic. Abdomen: Soft, nontender, nondistended. Positive bowel sounds. Extremities: No edema. No clubbing. No cyanosis. Neurological: The patient is not alert. He would withdraw with pain stimulation. LABORATORY: WBC 11, hemoglobin 10.7, hematocrit 33.8, platelet 116,000. Sodium 155, potassium 2.8, chloride 112, bicarbonate 30, BUN 39, creatinine 1.2, glucose 141, calcium 8.1, magnesium 2.1. ASSESSMENT AND PLAN: 1. Acute hypoxemic respiratory failure likely secondary to pneumonia which is probably an aspiration pneumonia. He is still on mechanical ventilation, without sedation. We will continue with antibiotics, pulmonary toilet, x-ray and blood gases. Pulmonary department is following this patient. 2. Septic shock. He is still on pressors. Continue with antibiotics. They are renally dosed and continue with fluid resuscitation. Because of the acidosis he was getting sodium bicarbonate, the bicarb level is much better today, so I will stop the bicarb drip. 3. Right lower lobe pneumonia likely aspiration pneumonia and is covered with antibiotics and breathing treatment. Continue to monitor. 4. Acute kidney injury likely prerenal. Getting better. Continue with IV fluids. 5. Hypernatremia. I think it is likely secondary to volume depletion. He received aggressive IV fluid resuscitation. I started this patient on D5W 6. AFib, stable. Continue to monitor. 7. Deep vein thrombosis prophylaxis. Continue with heparin. 8. Gastrointestinal prophylaxis. Since this patient is intubated we will continue with PPIs. CRITICAL CARE TIME: 35 minutes. cc: Kristopher Dhaliwal MD
[2017-03-18 12:12] LABS: ALLEN TEST YES; BE 10.3 mmoll (-3.0-3.0); BLOOD TYPE ARTERIAL; DRAW SITE R RADIAL; METHB 1.2 % (0.0-1.5); O2(CT) 14.1 mL/dL (15.0-23.0); PCO2(98.6) 34 mmHg (35-45); PO2(98.6) 128 mmHg (60-100); SAMPLE BLOOD; SAO2 99.5 % (95.0-100.0); THB 10.2 g/dL (11.5-17.4)
[2017-03-18 12:14] LABS: MODALITY VENTILATOR; pH(98.6) 7.59 (7.35-7.45)
[2017-03-18] MEDS ORDERED: VANCOMYCIN 1,500 MG in NS 250 ML IV SCH (16:00)
[2017-03-18] MEDS: LEVAQUIN 250 MG/D5W 250 MG/50 ML IVPB IV SCH (16:21)
[2017-03-18] MEDS: NEXIUM IV SCH (16:21)
[2017-03-19] MEDS: D5W 1,000 ML IV SCH ×3 (02:50→13:46)
[2017-03-19] MEDS: ZOSYN 2.25 GM/NS 2.25 GM/50 ML IVPB IV SCH ×2 (02:51→08:51)
[2017-03-19] MEDS: DUONEB (A & A) INH SCH ×4 (03:08→21:07)
[2017-03-19 07:45] LABS: HEMATOCRIT 35.4 % (42.0-52.0); HEMOGLOBIN 11.2 g/dL (14.0-18.0); MCH 29.6 PG (27-31); MCHC 31.6 g/dL (33-37); MCV 93.4 FL (81-99); MPV 11.5 FL (7.4-10.4); RBC 3.79 XMIL (4.7-6.1)
[2017-03-19 07:59] LABS: AGAP 11; BUN 24 mg/dL (8-22); CALCIUM 8.2 mg/dL (8.8-10.2); CHLORIDE 109 mmol/L (98-107); COSMO 295; POTASSIUM 3.4 mmol/L (3.5-5.1); SODIUM 146 mmol/L (136-145); TCO2 26 mmol/L (25-35)
--- NOTE | 2017-03-19 10:13 | PROGRESS NOTE ---
DATE: 03/19/2017 SUBJECTIVE: This patient was extubated yesterday. He looks alert. He is following commands on and off. He is able to communicate. He told me his name, but he did not answer the rest of my questions. He has been on pressors, but it was stopped this morning. The blood pressure has been stable, i.e. I asked the nurse to do a bedside swallow evaluation to see if we are going to start feeding this patient. He pulled out his OG tube. OBJECTIVE: Vital Signs: Temperature 97.7 degrees, pulse 69, respiratory rate 26, blood pressure 102/52. Oxygen saturation 97% on 3 L of nasal cannula. HEENT: Head normocephalic. No trauma. PERRLA. Neck: Supple. No JVD. No masses. Central trachea. Chest: Coarse breath sounds with scattered crackles mostly at the level of the right lower base. Cardiovascular: RRR. Not tachycardic. Abdomen is soft, nontender, nondistended. Positive bowel sounds. Extremities: No edema. No clubbing. No cyanosis. Scattered ecchymosis. Neurological: The patient is alert. He is following commands on and off. He is oriented x1, just to person. He has baseline dementia. No family members at the bedside. LABORATORY: WBC 8.4, hemoglobin 11.2, hematocrit 35.4, platelets 92,000. Sodium 146, potassium 3.4, chloride 109, bicarbonate 26. BUN 24, creatinine 1, glucose 105. Calcium 8.2, magnesium 2. ASSESSMENT AND PLAN: 1. Acute hypoxemic respiratory failure. This patient has pneumonia that is probably aspiration pneumonia. He used to be on mechanical ventilation but the respiratory failure improved. We will continue with the same management for now. We have a positive result for MSSA bacteremia. We will continue with the same management. 2. Septic shock. This is getting better as well. In general, vital signs are better. He has been off pressors since this morning. 3. Right lower lobe pneumonia likely related with aspiration pneumonia. Continue with antibiotics. 4. Acute kidney injury. Creatinine is normal. BUN is a little bit elevated. This is getting much better. 5. Hypernatremia. He continues to be hypernatremic, but compared with yesterday, he is much better. I will continue with the same management for now. The sodium today is 146. 6. Atrial fibrillation, stable. Continue to monitor. 7. Thrombocytopenia. I will monitor this one more day. Probably, we will need to stop some of his medications. I will stop the Zosyn and levofloxacin since we have a positive culture that showed Methicillin-susceptible Staphylococcus aureus. Probably, the thrombocytopenia is related with the antibiotics. 8. Deep vein thrombosis prophylaxis. Continue with sequential compression devices. 9. Gastrointestinal prophylaxis. This patient has been extubated. I will stop the proton pump inhibitor. 10. Nutritional status. This patient pulled out his OG tube. We will do a swallow evaluation at the bedside to see if this patient tolerates food. 11. Hypokalemia. I will replace the potassium. cc: Kristopher Dhaliwal MD
[2017-03-19] MEDS: POTASSIUM CHLORIDE 20 MEQ/SWI 20 MEQ/100 ML IVPB IV SCH ×2 (11:06→13:45)
[2017-03-19] MEDS: CARDIZEM 100 MG/NS 100 MG/100 ML IVPB IV SCH (13:46)
[2017-03-19] MEDS: CALMOSEPTINE OINTMENT TOP PRN (13:48)
[2017-03-19] MEDS: LEVAQUIN 250 MG/D5W 250 MG/50 ML IVPB IV SCH (16:34)
[2017-03-19] MEDS: VANCOMYCIN 1,500 MG in NS 250 ML IV SCH (18:14)
[2017-03-19] MEDS: SANTYL OINT TOP SCH (21:12)
[2017-03-20] MEDS: D5W 1,000 ML IV SCH ×4 (00:54→19:29)
[2017-03-20] MEDS: DUONEB (A & A) INH SCH ×4 (03:21→21:08)
[2017-03-20 05:30] LABS: MANUAL DIFF NEEDED? NO
[2017-03-20 05:35] LABS: BASO% 0.2 % (0.0-0.8); EOS# 0.16 X1000 (0.0-0.7); EOS% 1.9 % (0.0-10.0); HEMATOCRIT 31.7 % (42.0-52.0); HEMOGLOBIN 10.4 g/dL (14.0-18.0); IMM GRAN# 0.08 X1000 (0.0-0.04); IMM GRAN% 0.9 % (0.0-0.5); LYMPH# 0.97 X1000 (1.2-3.4); LYMPH% 11.5 % (20.5-51.1); MCH 29.4 PG (27-31); MCHC 32.8 g/dL (33-37); MCV 89.5 FL (81-99); MONO# 0.34 X1000 (0.11-0.59); MPV 10.4 FL (7.4-10.4); NEUT% 81.5 % (42.2-75.2); PLT 84 X1000 (130-400); RBC 3.54 XMIL (4.7-6.1)
[2017-03-20 06:37] LABS: BUN 21 mg/dL (8-22); CALCIUM 7.9 mg/dL (8.8-10.2); TCO2 20 mmol/L (25-35)
[2017-03-20 06:41] LABS: AGAP 14; CHLORIDE 109 mmol/L (98-107); POTASSIUM 3.5 mmol/L (3.5-5.1); SODIUM 143 mmol/L (136-145)
[2017-03-20 06:42] LABS: COSMO 289
[2017-03-20] MEDS: SANTYL OINT TOP SCH (09:17)
[2017-03-20] MEDS: ROCEPHIN 1 GM/NS 1 GM/50 ML IVPB IV SCH (11:37)
--- NOTE | 2017-03-20 12:34 | PROGRESS NOTE ---
DATE: 03/20/2017 SUBJECTIVE: This patient was extubated 2 days ago. He looks somnolent today but arousable. He is able to communicate. He told me his name, but he is not following commands or answering any other questions for me. We will repeat a swallow evaluation today. If he passes, we are going to start feeding this patient; otherwise, we will use an NG tube and tube feedings. OBJECTIVE: Vital Signs: Temperature 97.3 degrees, pulse 83, respiratory rate 22, blood pressure 108/60. O2 saturation 96% on 3 L of nasal cannula. HEENT: Head is normocephalic, no trauma. PERRLA. Neck: Supple. No JVD. No masses. Central trachea. Chest: Coarse breath sounds with scattered crackles mostly at the level of the right base. Cardiovascular: Regular rate and rhythm. Abdomen: Soft, nontender, nondistended, no hepatosplenomegaly. Extremities: No edema. No clubbing. No cyanosis. Scattered ecchymoses. Neurological: The patient is alert. He is following commands on and off. He is oriented x1, just to person. He has a baseline dementia with Lewy body. LABORATORY: WBC 8.4, hemoglobin 10.4, hematocrit 31.7, platelets 84,000. Sodium 143, potassium 3.5, chloride 109, bicarbonate 20, BUN 21, creatinine 1, glucose 117, calcium 7.9, magnesium 1.8. ASSESSMENT AND PLAN: 1. Acute hypoxemic respiratory failure, resolved. 2. Septic shock, resolved. 3. Right lower lobe pneumonia. We have a sputum culture as well as blood culture that showed a Staphylococcus aureus, MSSA. So, I will stop his medications and I will put this patient on ceftriaxone. 4. Acute kidney injury, resolved. 5. Hypernatremia, resolved. I will switch the D5W to D5 helap normal saline. 6. Atrial fibrillation, stable. Continue to monitor. 7. Thrombocytopenia. I stopped all of his antibiotics, probably his thrombocytopenia is related with this treatment. Today, I will put this patient on ceftriaxone since he has MSSA. 8. MSSA bacteremia. I have already stopped all of his antibiotics and I will put this patient on ceftriaxone. 9. Gastrointestinal prophylaxis. Patient has been extubated. He is not getting PPIs. 10. Nutritional status. We will do a swallow evaluation at bedside to see if this patient tolerates food. If this patient is not tolerating food, we will put an NG tube and start tube feedings. CRITICAL CARE TIME: 30 minutes. cc: Kristopher Dhaliwal MD
[2017-03-21] MEDS: DUONEB (A & A) INH SCH ×4 (03:20→21:06)
[2017-03-21] MEDS: D5W 1,000 ML IV SCH ×3 (04:34→15:41)
[2017-03-21 05:27] LABS: AGAP 12; BUN 17 mg/dL (8-22); CALCIUM 8.4 mg/dL (8.8-10.2); CHLORIDE 107 mmol/L (98-107); COSMO 285; POTASSIUM 3.9 mmol/L (3.5-5.1); SODIUM 142 mmol/L (136-145); TCO2 23 mmol/L (25-35)
[2017-03-21 08:42] LABS: HEMATOCRIT 36.6 % (42.0-52.0); HEMOGLOBIN 11.9 g/dL (14.0-18.0); MCH 29.6 PG (27-31); MCHC 32.5 g/dL (33-37); MPV 11.7 FL (7.4-10.4); RBC 4.02 XMIL (4.7-6.1)
[2017-03-21] MEDS ORDERED: MELATONIN PO SCH (09:00)
[2017-03-21] MEDS ORDERED: RESTORIL PO SCH (09:00)
[2017-03-21] MEDS: SANTYL OINT TOP SCH (09:10)
[2017-03-21] MEDS: VITAMIN D PO SCH (09:11)
[2017-03-21] MEDS: ELIQUIS PO SCH ×2 (09:11→20:26)
[2017-03-21] MEDS: NAMENDA XR PO SCH (09:12)
[2017-03-21] MEDS: MEGACE LIQUID PO SCH ×2 (09:12→20:26)
--- NOTE | 2017-03-21 09:12 | PROGRESS NOTE ---
DATE: 03/21/2017 SUBJECTIVE: This patient was extubated 3 days ago. He looks more alert. He is tolerating p.o., but he is eating very slow, and somebody needs to help him. He is not choking upon swallowing. He is not telling me his name like yesterday, but he looks at me if I call him. He is not following commands. OBJECTIVE: Vital Signs: Temperature 97.6 degrees, pulse 84, respiratory rate 22, blood pressure 89/59, oxygen saturation 94% on room air. HEENT: Head normocephalic. No trauma. PERRLA. Neck: Supple. No JVD. No masses. Central trachea. Chest: Coarse breath sounds with scattered crackles, mostly at the level of the right base. Cardiovascular: RRR. Abdomen: Soft, nontender, nondistended. No hepatosplenomegaly. Extremities: No edema. No clubbing. No cyanosis. Neurological: The patient is alert. He is not following commands for me. He looks at me when I say his name, but he is not answering any questions. He has a baseline dementia with Lewy body. LABORATORY DATA: Sodium 142, potassium 3.9, chloride 107, bicarbonate 23, BUN 17, creatinine 1, glucose 104, calcium 8.4. ASSESSMENT AND PLAN: 1. Acute hypoxemic respiratory failure, resolved. 2. Septic shock, resolved. 3. Right lower lobe pneumonia. Continue with ceftriaxone. We have a positive culture that showed methicillin-sensitive Staphylococcus aureus. 4. Methicillin-sensitive Staphylococcus aureus bacteremia. I have stopped all the antibiotics, and I put this patient on ceftriaxone. 5. Acute kidney injury, resolved. 6. Hypernatremia, resolved. 7. Atrial fibrillation, stable. I will continue with his anticoagulation. 8. Thrombocytopenia. Will monitor. I will ask for a CBC in the morning. 9. Gastrointestinal prophylaxis. The patient has been extubated. He is not getting proton pump inhibitors. 10. Nutritional status. He is tolerating by mouth, but he takes time to swallow. He is not choking. 11. Lewy body dementia. I restarted all his home medications. Will monitor. Overall, this patient is getting better. He is not having any respiratory distress. He is tolerating by mouth, but he is eating slowly. We need to talk to the family about his baseline. Probably, this is really close to his baseline. Probably, this patient can be discharged in the next 24 to 48 hours. cc: Kristopher Dhaliwal MD
[2017-03-21] MEDS: ROCEPHIN 1 GM/NS 1 GM/50 ML IVPB IV SCH (10:39)
[2017-03-21] MEDS: DULCOLAX PO SCH (20:26)
[2017-03-21] MEDS ORDERED: DEPAKOTE SPRINKLE PO SCH (21:00)
[2017-03-21] MEDS ORDERED: ATIVAN PO SCH (21:00)
[2017-03-22] MEDS: D5W 1,000 ML IV SCH ×2 (01:30→11:19)
[2017-03-22] MEDS: DUONEB (A & A) INH SCH ×5 (03:09→21:35)
[2017-03-22 04:43] LABS: MANUAL DIFF NEEDED? NO
[2017-03-22 05:11] LABS: AGAP 12; BUN 15 mg/dL (8-22); CALCIUM 8.3 mg/dL (8.8-10.2); CHLORIDE 107 mmol/L (98-107); COSMO 280; POTASSIUM 3.7 mmol/L (3.5-5.1); SODIUM 140 mmol/L (136-145); TCO2 21 mmol/L (25-35)
[2017-03-22 05:14] LABS: BASO% 0.2 % (0.0-0.8); EOS# 0.16 X1000 (0.0-0.7); EOS% 1.6 % (0.0-10.0); HEMATOCRIT 33.6 % (42.0-52.0); IMM GRAN# 0.21 X1000 (0.0-0.04); IMM GRAN% 2.1 % (0.0-0.5); LYMPH# 0.97 X1000 (1.2-3.4); LYMPH% 9.5 % (20.5-51.1); MCH 29.4 PG (27-31); MCHC 32.7 g/dL (33-37); MCV 89.8 FL (81-99); MONO% 2.9 % (1.7-9.3); MPV 10.6 FL (7.4-10.4); NEUT% 83.7 % (42.2-75.2); PLT 136 X1000 (130-400); RBC 3.74 XMIL (4.7-6.1)
[2017-03-22] MEDS: VITAMIN D PO SCH (08:32)
[2017-03-22] MEDS: MEGACE LIQUID PO SCH ×2 (08:32→21:13)
[2017-03-22] MEDS: ELIQUIS PO SCH ×2 (08:32→21:13)
[2017-03-22] MEDS: NAMENDA XR PO SCH (08:33)
[2017-03-22] MEDS: SANTYL OINT TOP SCH (08:34)
[2017-03-22] MEDS ORDERED: VITAMIN D PO SCH (09:15)
--- NOTE | 2017-03-22 10:19 | PROGRESS NOTE ---
DATE: 03/22/2017 SUBJECTIVE: The patient is very sleepy today. Apparently he got Ativan and also Depakote last night. Family who are at bedside are upset because of this and because apparently he was more awake and alert during previous days. OBJECTIVE: Vital Signs: Temperature 97.9 degrees, heart rate 77, respiratory rate 20, blood pressure 118/57, O2 saturation 98% on room air. General Examination: This is a chronically ill- looking and frail, 77-year-old male, lying in bed in no acute distress. HEENT: Head is normocephalic and atraumatic. Anicteric sclerae and pale conjunctivae. Mucous membranes dry. Neck: Supple. No JVD noted. No carotid bruits. No lymphadenopathy. No thyromegaly. Cardiovascular exam: S1 and S2 heard. Irregularly irregular heart rhythm with no murmurs, gallops or rubs. Respiratory exam: Coarse breath sounds in both bases, mostly noted in the right base. The patient is not using any accessory muscles or having work of breathing. Abdomen: Soft, nontender to palpation. Nondistended. No organomegaly. Extremities: No clubbing, cyanosis, or edema. Peripheral pulses present in both legs. Neurological exam: Patient is very sleepy because of medications. Apparently he moves 4 extremities spontaneously. LABORATORY DATA: CBC shows hemoglobin 11.0 with platelets 136. CMP is completely unremarkable. ASSESSMENT AND PLAN: 1. Acute hypoxemic respiratory failure. That condition is completely resolved. The patient now is not requiring any oxygen supplementation. 2. Septic shock secondary to pneumonia, resolved. 3. Right lower lobe pneumonia. We have possible culture that shows methicillin sensitive Staphylococcus aureus, so we are going to continue with ceftriaxone. 4. Acute kidney injury, completely resolved. 5. Hyponatremia, resolved. 6. Atrial fibrillation. Patient on Eliquis. We will continue with the same management. 7. Thrombocytopenia. That condition is completely resolved. 8. Nutritional status. Because this patient is sleepy, he is not able to take anything by mouth. We will see how he does today. 9. Lewy body dementia. We have restarted home medications. Overall this patient is doing better. Upon discharge he is going to get cephalexin oral. I have talked with the [id number], his daughter who is at bedside. After thinking carefully, she decided to take this patient home. The patient will need a hospital bed and she is going to hire a tube teller. She requests to have this patient in the hospital until next . I think this is understandable. In the meantime, we will continue with IV antibiotics. We have discontinued some medications as he very is sedated for this patient. We will see how this patient does. cc: Brett Venegas MD
[2017-03-22] MEDS: ROCEPHIN 1 GM/NS 1 GM/50 ML IVPB IV SCH (10:53)
[2017-03-22] MEDS ORDERED: RESTORIL PO PRN (21:00)
[2017-03-23] MEDS: DULCOLAX PO SCH ×2 (00:15→21:00)
[2017-03-23] MEDS: MELATONIN PO SCH ×2 (00:16→21:00)
[2017-03-23] MEDS: D5W 1,000 ML IV SCH ×3 (00:16→18:35)
[2017-03-23] MEDS: DUONEB (A & A) INH SCH ×4 (03:21→21:23)
--- NOTE | 2017-03-23 07:11 | Diag Imaging Result Doc PS360 ---
EXAM: CHEST-PORTABLE HISTORY: abnormal exam TECHNIQUE: Portable COMPARISON: 03/18/2017 FINDINGS: Interval removal of the endotracheal tube. The lungs are actually better aerated on the current study. The infiltrates in the lower lungs are less pronounced although they do persist. Small left apical infiltrate/density remains as well. No pleural effusions identified. There is a granuloma in the mid left lung. IMPRESSION: Overall interval improvement. Electronically signed by Jackson Langley 03/23/2017 7:09 AM
[2017-03-23] MEDS: ELIQUIS PO SCH ×2 (09:45→21:14)
[2017-03-23] MEDS: MEGACE LIQUID PO SCH ×3 (09:45→21:00)
[2017-03-23] MEDS: NAMENDA XR PO SCH (09:45)
[2017-03-23] MEDS: ROCEPHIN 1 GM/NS 1 GM/50 ML IVPB IV SCH (09:46)
--- NOTE | 2017-03-23 11:32 | PROGRESS NOTE ---
DATE: 03/23/2017 SUBJECTIVE: Patient is a little bit more awake today. As per nursing staff, he was able to eat some part of his breakfast. No other issues as per nursing overnight. OBJECTIVE: Vital Signs: Temperature 99.7 degrees, heart rate 87, respiratory rate 16, blood pressure 137/70, O2 saturation 96% on 2 L nasal cannula. General: This is a chronically ill- looking and frail, 77-year-old male, lying in bed, in no acute distress. HEENT: Head is normocephalic, atraumatic. Anicteric sclerae and pale conjunctivae. Mucous membranes dry. Neck: Supple. No JVD noted. No carotid bruits. No lymphadenopathy. No thyromegaly. Cardiovascular: S1, S2 heard. Irregularly irregular heart rhythm with no murmurs, gallops, or rubs. Respiratory: Coarse breath sounds still present in both bases, mostly noted in the right base. Patient is not using any accessory muscles or having work of breathing. Abdomen: Soft. Nontender to palpation. Bowel sounds present. No organomegaly. Extremities: No clubbing, cyanosis, or edema. Peripheral pulses present in both legs. Neurological: A little bit more awake. Does not answer questions. Apparently, he moves 4 extremities spontaneously. LABORATORY DATA: There are no labs from today. ASSESSMENT AND PLAN: 1. Acute hypoxemic respiratory failure. This condition is completely resolved. The patient is not requiring any oxygen supplementation. 2. Septic shock secondary to pneumonia, resolved. 3. Right lower lobe pneumonia. The patient is being treated with ceftriaxone. The culture showed MSSA, methicillin-sensitive Staph aureus. 4. Acute kidney injury, resolved. 5. Hyponatremia, resolved. 6. Atrial fibrillation. Patient is on Eliquis. Will continue with the same management. 7. Thrombocytopenia, resolved. 8. Nutritional status. Because he was sleepy yesterday, he was not given anything by mouth. But today he is more alert and he was given some food according to the nurse. 9. Lewey body dementia. We have restarted home medications. Overall this patient is doing better. We had a conversation with the daughter and the decision was made to send this patient tomorrow home with home health. The family is going to hire a sr. operations manager. Will contact director of social services to see if there is anything else that we can do for this patient before she leaves tomorrow. cc: Brett Venegas MD MTDD
[2017-03-23] MEDS: SANTYL OINT TOP SCH (12:18)
[2017-03-24] MEDS: DUONEB (A & A) INH SCH ×4 (01:22→21:11)
[2017-03-24] MEDS: D5W 1,000 ML IV SCH ×2 (04:52→14:15)
[2017-03-24] MEDS: ELIQUIS PO SCH (09:38)
[2017-03-24] MEDS: MEGACE LIQUID PO SCH (09:38)
[2017-03-24] MEDS: NAMENDA XR PO SCH (09:38)
[2017-03-24] MEDS: ROCEPHIN 1 GM/NS 1 GM/50 ML IVPB IV SCH (10:32)
--- NOTE | 2017-03-24 14:24 | PROGRESS NOTE ---
DATE: 03/24/2017 SUBJECTIVE: Patient seems more awake although he does not want to answer any questions for me. No acute issues noted as per nursing overnight. OBJECTIVE: Vital Signs: Temperature 98.5 degrees, heart rate 87, respiratory 14, blood pressure 144/72, O2 saturation 95% on 2 L nasal cannula. General Examination: This is a chronically ill- looking and frail 77-year-old male, lying in bed, in no acute distress. HEENT: Head is normocephalic, atraumatic. Anicteric sclerae and pale conjunctivae. Mucous membranes dry. Neck: Supple. No JVD noted. No carotid bruits. No lymphadenopathy. No thyromegaly. Cardiovascular: S1, S2 heard. Irregularly irregular heart rhythm. No murmurs, gallops, or rubs. Respiratory: Coarse breath sounds present in both bases, mostly noted in the right base. Patient is not using any accessory muscles or having work of breathing. Abdomen: Soft, nontender to palpation. Bowel sounds present. No organomegaly. Extremity: No clubbing, cyanosis, or edema. Peripheral pulses present in both legs. Neurological Exam: Patient is a little bit more awake but does not answer any questions. Patient moves 4 extremities. LABORATORY DATA: There is no labs from today. ASSESSMENT AND PLAN: 1. Acute hypoxemic respiratory failure. Patient not requiring any oxygen supplementation. 2. Septic shock secondary to pneumonia, resolved. 3. Right lower lobe pneumonia. He is currently on ceftriaxone. We will continue with the same management. 4. JUDSON resolved. 5. Hyponatremia resolved. 6. Atrial fibrillation. Patient is on Eliquis and we will continue with the same management. 7. Thrombocytopenia resolved. 8. Nutritional status. At this point, even though that he is not as sleepy because of the medication that he got last week he apparently does not want to take any food. We have talked with the daughter who was informed about the situation and she was explained that the only option that we have is to place a PEG tube. The daughter is going to think about this option and will let us know later today. 9. Lewy body dementia, patient on home medications. cc: Brett Venegas MD
[2017-03-24] MEDS: SANTYL OINT TOP SCH (17:45)
[2017-03-25] MEDS: DULCOLAX PO SCH (00:19)
[2017-03-25] MEDS: MEGACE LIQUID PO SCH ×2 (00:20→09:55)
[2017-03-25] MEDS: MELATONIN PO SCH (00:20)
[2017-03-25] MEDS: D5W 1,000 ML IV SCH ×3 (00:21→16:29)
[2017-03-25] MEDS: ELIQUIS PO SCH ×2 (00:21→09:55)
[2017-03-25] MEDS: DUONEB (A & A) INH SCH ×4 (03:28→21:10)
[2017-03-25] MEDS: SANTYL OINT TOP SCH (09:35)
[2017-03-25] MEDS: NAMENDA XR PO SCH (09:55)
[2017-03-25] MEDS: ROCEPHIN 1 GM/NS 1 GM/50 ML IVPB IV SCH (12:15)
--- NOTE | 2017-03-25 15:09 | PROGRESS NOTE ---
DATE: 03/25/2017 SUBJECTIVE: Patient is more awake, although not talkative. He does not answer any questions. No acute issues as per nursing overnight. OBJECTIVE: Vital Signs: Temperature 98.2 degrees, heart rate 88, respiratory rate 17, blood pressure 116/62, O2 saturation 98% on nasal cannula. General Examination: This is a chronically ill-looking and frail, malnourished, 77-year-old male, lying in bed, in no acute distress. HEENT: Head is normocephalic and atraumatic. Anicteric sclerae and pale conjunctivae. Mucous membranes moist. Neck: Supple. No JVD. No carotid bruits. No lymphadenopathy. No thyromegaly. Cardiovascular: S1, S2 heard, irregularly irregular. No murmurs, gallops, or rubs. Respiratory: Coarse breath sounds are present in both bases, mostly remarkable on the right base. Patient is not using any accessory muscles or having work of breathing. Abdomen: Soft, nontender to palpation. Bowel sounds present. No organomegaly. Extremities: No clubbing, cyanosis, or edema. Peripheral pulses present in both legs. Neurological Examination: Patient is awake but disoriented and does not talk. Patient moves 4 extremities. LABORATORY DATA: There are no labs from today. ASSESSMENT AND PLAN: 1. Acute hypoxemic respiratory failure. Resolved, with patient not requiring any oxygen supplementation. 2. Septic shock secondary to pneumonia. Resolved. 3. Right lower lobe pneumonia. Patient is on ceftriaxone. We will continue with the same management. 4. Acute kidney injury. That is completely resolved. 5. Hyponatremia. Resolved. 6. Atrial fibrillation. Her heart rate is controlled and patient is on Eliquis. 7. Thrombocytopenia. Resolved. 8. Nutritional status. Patient refused to eat as per nursing in charge, so we have talked with yesterday with daughter who is supposed to give us an answer about this patient to have a PEG tube or not. I guess that is the only option that we have to feed this patient. Until we get a consent we cannot do anything else. 9. Lewy body dementia. Patient is on home medications. cc: Brett Venegas MD
[2017-03-25] MEDS ORDERED: MORPHINE IV PRN (21:03)
[2017-03-26] MEDS: D5W 1,000 ML IV SCH ×3 (00:54→11:00)
[2017-03-26] MEDS: DULCOLAX PO SCH ×2 (00:54→22:30)
[2017-03-26] MEDS: ELIQUIS PO SCH ×3 (00:54→22:30)
[2017-03-26] MEDS: MELATONIN PO SCH ×2 (00:55→22:30)
[2017-03-26] MEDS: MEGACE LIQUID PO SCH ×3 (00:55→22:30)
[2017-03-26] MEDS: DUONEB (A & A) INH SCH ×4 (03:30→20:26)
[2017-03-26 06:06] LABS: MANUAL DIFF NEEDED? NO
[2017-03-26 06:16] LABS: BASO% 0.2 % (0.0-0.8); EOS# 0.18 X1000 (0.0-0.7); EOS% 1.2 % (0.0-10.0); HEMATOCRIT 31.9 % (42.0-52.0); HEMOGLOBIN 10.6 g/dL (14.0-18.0); IMM GRAN# 0.12 X1000 (0.0-0.04); IMM GRAN% 0.8 % (0.0-0.5); LYMPH# 1.32 X1000 (1.2-3.4); LYMPH% 9.2 % (20.5-51.1); MCH 29.4 PG (27-31); MCHC 33.2 g/dL (33-37); MCV 88.4 FL (81-99); MONO# 0.76 X1000 (0.11-0.59); MONO% 5.3 % (1.7-9.3); NEUT% 83.3 % (42.2-75.2); PLT 293 X1000 (130-400); RBC 3.61 XMIL (4.7-6.1)
[2017-03-26 06:20] LABS: AGAP 14; BUN 11 mg/dL (8-22); CALCIUM 8.9 mg/dL (8.8-10.2); CHLORIDE 99 mmol/L (98-107); COSMO 267; POTASSIUM 3.7 mmol/L (3.5-5.1); SODIUM 133 mmol/L (136-145); TCO2 20 mmol/L (25-35)
[2017-03-26] MEDS: NAMENDA XR PO SCH (09:01)
[2017-03-26] MEDS: ROCEPHIN 1 GM/NS 1 GM/50 ML IVPB IV SCH (11:01)
[2017-03-26] MEDS: LIPOSYN 20% 250 ML IV SCH (12:34)
[2017-03-26] MEDS: CLINIMIX E 4.25%-5% SOLUTION 1,000 ML IV SCH ×2 (12:35→22:31)
--- NOTE | 2017-03-26 13:11 | PROGRESS NOTE ---
DATE: 03/26/2017 SUBJECTIVE: Patient is still not responsive, awake but does not talk, does not answer any questions. No acute issues as per nursing overnight. OBJECTIVE: Vital Signs: Temperature 98.2 degrees, heart rate 99, respiratory 14, blood pressure 106/60, and O2 saturation 98% on room air. General examination: This is a chronically ill- looking, frail, malnourished, 77-year-old male, lying in bed in no acute distress. HEENT: Head is normocephalic, atraumatic. Anicteric sclerae and pale conjunctivae. Mucous membranes moist. Neck: Supple. No JVD noted. No carotid bruits. No lymphadenopathy. No thyromegaly. Cardiovascular exam: S1, S2 heard. No murmurs, gallops, or rubs. Irregularly irregular rate and rhythm. Respiratory exam: Coarse breath sounds still present in both bases, but most noticeable in the right base. The patient is not using any accessory muscles or having work of breathing. Abdomen: Soft, nontender to palpation. Bowel sounds present. No organomegaly. Extremities: No clubbing, cyanosis, or edema. Peripheral pulses present in both legs. Neurological exam: Patient is awake, but does not follow commands, does not talk. Moves 4 extremities spontaneously. LABORATORY DATA: BMP remarkable for sodium 133 and the CBC shows white cell count 14.44. ASSESSMENT AND PLAN: 1. Right lower lobe pneumonia. Patient is on ceftriaxone; today is day #7. We will continue with the same management. 2. Septic shock secondary to pneumonia, resolved. 3. Acute hypoxemic respiratory failure, resolved. 4. Hyponatremia, resolved. 5. Atrial fibrillation with heart rate controlled. We will continue with Eliquis. 6. Thrombocytopenia, resolved. 7. Nutritional status: The patient has baseline dementia and, unfortunately because of this pneumonia, it is getting worse. On the last few days, the patient is not able to be fed, so we have talked with the daughter about the prognosis and what would be the next step in the management of this patient. I suggested the possibility of placement of percutaneous endoscopic gastrostomy tube. The daughter told me that she is going to call back to let us know if they approve to have this percutaneous endoscopic gastrostomy tube or not. In the meantime, I am going to start today Clinimix and lipids. 8. Lewy body dementia. Patient is on home medications. cc: Brett Venegas MD
[2017-03-26] MEDS: SANTYL OINT TOP SCH (14:44)
[2017-03-26] MEDS ORDERED: BLISTEX MEDICATED BERRY LIP BALM TOP PRN (18:30)
[2017-03-27] MEDS: DUONEB (A & A) INH SCH ×4 (03:15→21:07)
[2017-03-27 07:06] LABS: MANUAL DIFF NEEDED? NO
[2017-03-27 07:09] LABS: BASO% 0.3 % (0.0-0.8); EOS# 0.12 X1000 (0.0-0.7); EOS% 1.1 % (0.0-10.0); HEMATOCRIT 31.5 % (42.0-52.0); HEMOGLOBIN 10.5 g/dL (14.0-18.0); IMM GRAN# 0.07 X1000 (0.0-0.04); IMM GRAN% 0.6 % (0.0-0.5); LYMPH# 1.21 X1000 (1.2-3.4); LYMPH% 10.9 % (20.5-51.1); MCH 29.7 PG (27-31); MCHC 33.3 g/dL (33-37); MONO# 0.72 X1000 (0.11-0.59); MONO% 6.5 % (1.7-9.3); MPV 9.7 FL (7.4-10.4); NEUT% 80.6 % (42.2-75.2); PLT 327 X1000 (130-400); RBC 3.54 XMIL (4.7-6.1)
[2017-03-27 07:33] LABS: AGAP 11; BUN 28 mg/dL (8-22); CHLORIDE 104 mmol/L (98-107); COSMO 277; POTASSIUM 3.8 mmol/L (3.5-5.1); SODIUM 135 mmol/L (136-145); TCO2 20 mmol/L (25-35)
[2017-03-27] MEDS: CLINIMIX E 4.25%-5% SOLUTION 1,000 ML IV SCH ×2 (08:54→20:01)
[2017-03-27] MEDS: NAMENDA XR PO SCH (08:56)
[2017-03-27] MEDS: MEGACE LIQUID PO SCH ×2 (08:56→20:02)
[2017-03-27] MEDS: ELIQUIS PO SCH ×2 (08:56→20:02)
[2017-03-27] MEDS: ROCEPHIN 1 GM/NS 1 GM/50 ML IVPB IV SCH (10:00)
[2017-03-27] MEDS: LIPOSYN 20% 250 ML IV SCH (13:26)
--- NOTE | 2017-03-27 14:27 | PROGRESS NOTE ---
DATE: 03/27/2017 SUBJECTIVE: Patient is awake, he answered basic questions. No acute issues as per nursing staff overnight. OBJECTIVE: Vital Signs: Temperature 98.8 degrees, heart rate 82, respiratory rate 18, blood pressure 116/83, O2 saturation 95% on room air. General examination: This is a chronically ill- looking and frail malnourished 77-year-old male lying in bed in no acute distress. HEENT: Head is normocephalic, atraumatic. Anicteric sclerae and pale conjunctivae. Mucous membranes moist. Neck: Supple. No JVD. No carotid bruits. No lymphadenopathy. No thyromegaly. Cardiovascular: S1, S2 heard. No murmurs, gallops or rubs. Regular rate and rhythm. Respiratory: Coarse breath sounds present in both bases mostly in the right base, patient is not using any accessory muscles or having work of breathing. Abdomen: Soft, nontender to palpation. Bowel sounds present. No organomegaly. Extremities: No clubbing, cyanosis, or edema. Peripheral pulses present in both legs. Neurological: Patient awake but does follow commands today. Does answer basic questions with yes or no, moved 4 extremities spontaneously. LABORATORY DATA: Reviewed. ASSESSMENT AND PLAN: 1. Right lower lobe pneumonia. Patient on ceftriaxone today is day #8 of antibiotics. Will continue with the same management. 2. Septic shock secondary to pneumonia resolved. 3. Acute hypoxemic respiratory failure resolved. 4. Hyponatremia resolved. 5. Atrial fibrillation heart rate controlled. Will continue with Eliquis. 6. Thrombocytopenia resolved. 7. Nutritional status. Patient is on Clinimix and lipids while we await for an answer from daughter about they want us to proceed with a PEG tube or not. Hopefully we will meet her tomorrow morning. 8. Lewy body dementia. Patient's home medications. cc: Brett Venegas MD
[2017-03-27] MEDS: SANTYL OINT TOP SCH (17:55)
[2017-03-27] MEDS: MELATONIN PO SCH (20:02)
[2017-03-27] MEDS: DULCOLAX PO SCH (20:03)
[2017-03-28] MEDS: DUONEB (A & A) INH SCH ×2 (02:56→09:55)
[2017-03-28] MEDS: CLINIMIX E 4.25%-5% SOLUTION 1,000 ML IV SCH (05:42)
[2017-03-28 06:36] LABS: MANUAL DIFF NEEDED? NO
[2017-03-28 06:42] LABS: BASO% 0.3 % (0.0-0.8); EOS# 0.08 X1000 (0.0-0.7); EOS% 0.5 % (0.0-10.0); HEMATOCRIT 29.3 % (42.0-52.0); HEMOGLOBIN 9.6 g/dL (14.0-18.0); IMM GRAN# 0.08 X1000 (0.0-0.04); IMM GRAN% 0.5 % (0.0-0.5); LYMPH% 9.3 % (20.5-51.1); MCH 29.2 PG (27-31); MCHC 32.8 g/dL (33-37); MCV 89.1 FL (81-99); MONO# 0.97 X1000 (0.11-0.59); MONO% 6.5 % (1.7-9.3); MPV 9.6 FL (7.4-10.4); NEUT% 82.9 % (42.2-75.2); PLT 378 X1000 (130-400); RBC 3.29 XMIL (4.7-6.1)
[2017-03-28 07:00] LABS: AGAP 13; BUN 37 mg/dL (8-22); CALCIUM 8.8 mg/dL (8.8-10.2); CHLORIDE 102 mmol/L (98-107); COSMO 280; POTASSIUM 3.8 mmol/L (3.5-5.1); SODIUM 135 mmol/L (136-145); TCO2 20 mmol/L (25-35)
[2017-03-28] MEDS: ELIQUIS PO SCH (08:21)
[2017-03-28] MEDS: MEGACE LIQUID PO SCH ×2 (08:21→10:23)
[2017-03-28] MEDS: ROCEPHIN 1 GM/NS 1 GM/50 ML IVPB IV SCH (10:18)
[2017-03-28] MEDS: SANTYL OINT TOP SCH (10:22)
[2017-03-28] MEDS: NAMENDA XR PO SCH (10:23)
[2017-03-28] MEDS ORDERED: ATIVAN IV PRN (11:39)
[2017-03-28] MEDS ORDERED: TRANSDERM-SCOP TD SCH (12:00)
--- NOTE | 2017-03-28 14:22 | PROGRESS NOTE ---
DATE: 03/28/2017 SUBJECTIVE: Patient is more lethargic today. As per nursing staff he had 1 episode of vomiting bloody and black vomiting. Apparently he may have aspirated. OBJECTIVE: Vital Signs: Temperature 99.1 degrees, heart rate 124, respiratory rate 20, blood pressure 197/46, O2 saturation 98% on room air. General: This is a chronically ill-looking, frail and malnourished 77-year-old male, lying in bed, in no acute distress. HEENT: Head is normocephalic, atraumatic. Anicteric sclerae and pale conjunctivae. Mucous membranes very dry with some black vomiting still present in the mouth. Neck: Supple. No JVD noted. No carotid bruits. No lymphadenopathy. No thyromegaly. Cardiovascular: S1, S2 heard. Tachycardic. No murmurs, gallops, or rubs. Regular rate and rhythm. Respiratory: Coarse breath sounds present all over both pulmonary ahrris, but patient is not using any accessory muscles or having work of breathing. Abdomen: Soft, nontender to palpation. Bowel sounds present. No organomegaly. Extremities: No clubbing, cyanosis, or edema. Peripheral pulses present in both legs. Neurological: The patient is very lethargic, does not follow commands. Moves 4 extremities spontaneously. LABORATORY DATA: Reviewed. ASSESSMENT AND PLAN: 1. Right lower lobe pneumonia. Patient has been on ceftriaxone for 9 days, but unfortunately, he was not responding to that medication. 2. Septic shock secondary to pneumonia resolved. 3. Acute hypoxemic respiratory failure resolved. 4. Hyponatremia resolved. 5. Atrial fibrillation. Rate controlled. Patient is on Eliquis. 6. Thrombocytopenia resolved. 7. Nutritional status. The patient was started on Clinimix and lipids 2 days ago and there was a question of whether to place a PEG tube or not. 8. Lewy body dementia. Patient is on home medications. Overall, this patient is not doing good. We had a long conversation with the family that includes 1 son and 2 daughters. We have informed them about the poor prognosis on this patient and they prefer to remove all active treatment, putting on withdrawal of care. They agreed to consult hospice. At this time, they mentioned that they are not able to take their father home with hospice because their mother also has basically the same problem, very sick, so at this time we are going to consult hospice. We will start the patient on morphine, Ativan and a scopolamine patch. We will continue following this patient closely. cc: Brett Venegas MD
[2017-03-28] MEDS: MORPHINE IV PRN (17:16)
[2017-03-28] MEDS ORDERED: SEROQUEL XX SCH (21:00)
[2017-03-29 04:31] VITALS: BP 108/57
[2017-03-29] MEDS: MORPHINE IV PRN ×2 (10:13→12:44)
[2017-03-29] MEDS ORDERED: ROXANOL CONC. LIQUID PO PRN (12:57)
--- NOTE | 2017-03-29 15:39 | PROGRESS NOTE ---
DATE: 03/29/2017 SUBJECTIVE: Mr. Neumann continues to be the same, unresponsive, not communicating. The nursing staff was changing him at the time I went in for the encounter. OBJECTIVE: Vitals: Stable. Blood pressure is 108/57, pulse of 100, respiration is 18, temperature 99.1 degrees. General: Mr. Neumann is a 77-year-old male. He was in bed. Not in any distress. HEENT: Mucosa is pink. The patient looks remarkably wasted. Chest: Good air entry bilaterally. A few bibasilar crepitations. Cardiovascular: Regular rate and rhythm. Abdomen: Is soft. Extremities: No pedal edema. PUBLIC HEALTH STAFF NURSE: Patient is awake, but nonverbal. Does not follow any commands. Was able to move his extremities slightly to painful stimulation, and he seems extremely rigid, like pipeline rigidity consistent with possible Parkinson's disease. LABORATORY DATA: No lab work for today. ASSESSMENT: 1. Right lower lobe pneumonia. 2. Septic shock secondary to #1. 3. Acute hypoxemic respiratory failure, improved. 4. Atrial fibrillation. 5. Lewy body dementia. PLAN: In general, it seems Mr. Neumann has not shown any remarkable improvement since admission. 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 He has been evaluated today by hospice and we will continue with further recommendations from them. cc: Kai Arteaga MD
--- NOTE | 2017-03-30 22:53 | DISCHARGE SUMMARY ---
ADMISSION DATE: 03/16/2017 DISCHARGE DATE: 03/29/2017 CONSULTATIONS: Dr. Randall Swan with Pulmonology. PROCEDURES: 1. Head CT showed atrophy and chronic microvascular disease, no acute disease. 2. Chest, abdomen and pelvis CT showed multilobar bilateral pulmonary infiltrates suspicious for pneumonia, aspiration, esophagus rather dilated with fluid, no distal bowel dysfunction, suspicious for right renal mass, small amount of obstructing right renal stones, rectal stool impaction without obstruction. 3. Echocardiogram with limited views showed an EF of 50%. Segmental wall motion analysis could not be performed secondary to poor resolution of the endocardial borders. No pericardial effusion. DISCHARGE DIAGNOSES: 1. Right lower lobe pneumonia. 2. Septic shock secondary to #1. 3. Acute hypoxemic respiratory failure, improved. 4. Atrial fibrillation. 5. Lewy body dementia. HOSPITAL COURSE: Briefly, Mr. 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 At the time of his admission he was intubated and sedated, unable to give any type of history. He did have family at the bedside. The patient was at [facility] a few weeks back. He was ultimately transferred to [facility]. Per the family, he has been becoming more agitated over the past weeks, requiring mental health evaluation. On admission requiring heavy sedatives. At [facility] they were trying to wean him off of some of his psychotropic drugs. His family noticed a decline in him until the day that he was sent to the ED for hypotension and tachycardia. In the ED, he was in respiratory failure, required immediate intubation. Chest x-ray showed a right lower lobe pneumonia. Blood work showed a severe metabolic acidosis with renal failure, slightly elevated troponin, hypoalbuminemia, and profound lactic acidosis of 9.1. In the ER, he was in and out of ventricular tachycardia and reportedly ventricular fibrillation but there is no proper documentation of this. The patient was treated with IV lidocaine and amiodarone. He was also noted to be in atrial fibrillation with RVR at times. He was stabilized in the ED. He was in sinus rhythm bordering on sinus tachycardia. He did require vasopressor support and was admitted to the ICU. He was treated for health care associated pneumonia with IV antibiotics with a pulmonary consult, aggressive pulmonary toilet, bronchodilators, aggressive fluid resuscitation. We trended cardiac enzymes as well as Cardiology. The patient did get an echocardiogram. Mr. Neumann was able to be weaned off the ventilator as well as his pressors. The patient passed a swallow study. He did not require NG tube feedings. He was tolerating p.o. However, for several days the patient would only tell you his name. The patient did become more awake at times. The doctor spoke with the family. They did not want him to return to rehab. They wanted to take him home with home health as well as hire caretakers to sit with him during the day. He was still not answering any questions. The patient was still not taking in very much p.o. We did discuss doing a PEG tube. In the meantime, the patient was placed on Clinimix, thin liquids. The patient did have an episode of vomiting bloody and black vomitus. Apparently he may have aspirated. He was more lethargic. He had already been treated for 9 days for a right lower lobe pneumonia and unfortunately he was not responding. Dr. Arteaga had a long conversation with the family again and informed them about the poor prognosis of the patient, and they preferred to remove all active treatments, withdraw care, and consult hospice. Initially he was made comfort measures only. On 03/29/2017, he was changed to inpatient hospice with [facility]. Dictated by FATMATA Trotter for Kai Arteaga MD cc: MD Jeremías Verma II, MD MTDD
== END 2017-03-29 14:29 | disposition hospice, inpatient (51) ==
LOC: SUPCPDRO → ED 11:52 → SUATTDRO 15:41 → ICU 15:41 → 3N 03-22 08:49
PROVIDERS: ATTEND Internal Medicine

== ENCOUNTER 2017-03-29 14:31 | Inpatient (IN) ==
[2017-03-29] MEDS ORDERED: ATROPINE 1% OPHTH SOLN SL PRN (15:51)
[2017-03-29] MEDS ORDERED: ATIVAN PO PRN (15:52)
[2017-03-29] MEDS: ROXANOL CONC. LIQUID PO PRN (18:25)
[2017-03-30] MEDS: ROXANOL CONC. LIQUID PO PRN (13:40)
--- NOTE | 2017-03-30 17:55 | PROGRESS NOTE ---
DATE: 03/30/2017 SUBJECTIVE: Today Mr. Neumann continues to be stable. There was a grandson in the room at the time of the encounter. OBJECTIVE: Vital signs: Stable. Blood pressure is 102/58, pulse of 123, respirations 14, temperature is 99.0 degrees. General: Mr. Neumann is a 77-year-old male. He was in bed, unresponsive. Chest: Good air entry with a few bibasilar crepitations. Cardiovascular: Hear rate was normal. Abdomen: Soft. Extremities: There was no pedal edema. PACKING LINE OPERATOR: Patient was unresponsive. Will only barely move extremities to painful stimulation. LAB: No lab work for today. ASSESSMENT: 1. Right lower lobe pneumonia. 2. Septic shock secondary to #1. 3. Acute hypoxemic respiratory failure. 4. Atrial fibrillation. 5. Lewey body dementia, progressively worsening. 6. Comfort measures only. PLAN: We are going to continue with current medications including Roxanol, Ativan, scopolamine, and atropine p.r.n. cc: Kai Arteaga MD
[2017-03-31] MEDS: ROXANOL CONC. LIQUID PO PRN (14:14)
--- NOTE | 2017-03-31 17:06 | PROGRESS NOTE ---
DATE: 03/31/2017 SUBJECTIVE: Today, Mr. Neumann continues to be the same. No real changes overnight. Continues to be on inpatient hospice. OBJECTIVELY: Vitals: Blood pressure 75/42, pulse of 62, respirations 16, temperature 98.6 degrees. General: Physical examination is much unchanged. Neurological: He continues to be nonverbal. He will be in his eyes barely to verbal and painful stimulation. LABORATORY DATA: None. ASSESSMENT: 1. Right lower lobe pneumonia. 2. Septic shock secondary to #1. 3. Acute hypoxemic respiratory failure. 4. Atrial fibrillation, currently rate controlled. 5. Lewy body dementia, progressively worsened. 6. Comfort measures only. cc: Kai Arteaga MD
[2017-03-31] MEDS ORDERED: NS 1,000 ML IV ONE (19:45)
[2017-03-31] MEDS: TRANSDERM-SCOP TD SCH (20:48)
--- NOTE | 2017-04-01 16:59 | PROGRESS NOTE ---
DATE: 04/01/2017 SUBJECTIVE: This morning he continues to be stable, not major changes overnight as per the nurses. Continues to be in inpatient hospice. VITAL SIGNS: Blood pressure 111/61, pulse of 104, respirations 16, temperature 98.8 degrees. Patient is saturating 94%. ASSESSMENT: 1. Right lower lobe pneumonia. 2. Septic shock, secondary to #1. 3. Acute hypoxemic respiratory failure. 4. Atrial fibrillation 5. Lewy body dementia. 6. Hospice care. PLAN: We are going to continue with comfort care measures, and address Mr. Neumann's symptoms. cc: Kai Arteaga MD
--- NOTE | 2017-04-02 15:28 | PROGRESS NOTE ---
DATE: 04/02/2017 SUBJECTIVE: Today Mr. Neumann continues to be the same, not any major changes. The daughter was actually at the bedside at the time of the encounter, and we had a very lengthy discussion. She requested to see if we can transfer Mr. Neumann to [place], where the is also admitted under very critical condition. OBJECTIVE: Vital Signs: This morning, blood pressure is 114/67, pulse of 103, respirations 16, temperature 97.4 degrees. Central Nervous System: Unchanged. Specifically, in JUNCTION MAKER. The patient will only moan to some painful stimulation, but will not follow any commands. ASSESSMENT: 1. Severe progressively worsening Lewy body dementia. 2. Septic shock on presentation. 3. Right lower lobe pneumonia. 4. Acute hypoxemic respiratory failure. 5. Atrial fibrillation. 6. Hospice care. PLAN: I did advise the daughter for the patient to find out from [facility] if they will be willing to take the patient in over there on hospice as well, so that the patient will be in the same facility with the . That will be a little bit easier for the family in terms of traveling and visitation. cc: Kai Arteaga MD
[2017-04-02] MEDS ORDERED: NS 1,000 ML ONE (16:03)
[2017-04-03] MEDS ORDERED: LIPOSYN 20% 250 ML IV SCH (10:30)
--- NOTE | 2017-04-03 10:51 | PROGRESS NOTE ---
DATE: 04/03/2017 SUBJECTIVE: Today Mr. Neumann continues to be the same, pretty much unchanged. However, the daughter came in early this morning and spoke to the staff and wants her dad to be taken off inpatient hospice and be given some form of nutrition because she thinks that if we get him some nutrition and hydration he is going to get a little stronger. Anyway, I called her on her number and she did make the same remarks, that she wants her dad back to full treatment except that she will maintain the DNR level 1 status but it is okay to hydrate him, to given him nourishment, and to give him antibiotics if he needs it. OBJECTIVE: Vital signs: This morning blood pressure is 109/65, pulse of 105, respirations 20, temperature 98.4 degrees. Patient is saturating 100% on 2 L. General: Mr. Neumann is a 77-year- old male. He is in bed, minimally responsive. HEENT: Mucosa is slightly dry. Anicteric. Acyanotic. Neck: Supple. Chest: Good air entry bilaterally. No crepitations. No rhonchi. Cardiovascular: Regular rate and rhythm. Abdomen: Soft. Extremities: No pedal edema. PVC LOADER: Patient is awake but unresponsive. Will barely move his extremities to painful stimulation. Pupils are reactive. Whenever you ask him a question, he tries to mumble. He is generally stiff all over. LAB: No lab work for today. ASSESSMENT: 1. Severe, progressively worsening Lewey body dementia. 2. Septic shock on presentation. 3. Right lower lobe pneumonia. 4. Atrial fibrillation. 5. Do Not Resuscitate level 1. 6. Hospice care. PLAN: Today, as I said, the daughter wants her dad out of hospice and institute therapy. She has a plan to actually transfer him from here to [facility] either tomorrow, Tuesday, or Tuesday. We will do a stat chest x-ray, do some basic lab work, and start the patient on Clinimix and lipid infusion for now. If his chest x-ray shows that he still has the pneumonia we will start him on antibiotics. If his white count is high we will do blood cultures and urine cultures and put him on antibiotics. So Mr. Neumann is no more under inpatient hospice care. cc: Kai Arteaga MD
--- NOTE | 2017-04-03 10:59 | Diag Imaging Result Doc PS360 ---
EXAM: CHEST-1 VIEW HISTORY: pneumo TECHNIQUE: AP portable semiupright at 1050 COMMENT: There are ill-defined opacities in the right parahilar and lower lobe regions. This appears somewhat worse than on 03/23/2017. There is some motion artifact. IMPRESSION: Worsened atelectasis versus pneumonia right lower lobe. No evidence of pneumothorax. Electronically signed by Lio Mejias 04/03/2017 10:57 AM
[2017-04-03] MEDS: CLINIMIX E 4.25%-5% SOLUTION 1,000 ML IV SCH ×2 (11:02→21:18)
[2017-04-03] MEDS: ROXANOL CONC. LIQUID PO PRN (11:15)
[2017-04-03] MEDS: LIPOSYN 20% 500 ML IV SCH (11:18)
[2017-04-03 13:19] LABS: AGAP 19; ALBUMIN 2.3 g/dL (3.5-5.0); ALKALINE PHOSPHATASE 76 U/L (32-122); BUN 44 mg/dL (8-22); CALCIUM 9.3 mg/dL (8.8-10.2); CHLORIDE 120 mmol/L (98-107); COSMO 320; GOT 16 U/L (10-34); GPT 6 U/L (10-44); SODIUM 155 mmol/L (136-145); TCO2 16 mmol/L (25-35); TOTAL BILIRUBIN 0.44 mg/dL (0.20-1.00); TOTAL PROTEIN 6.1 g/dL (6.3-8.3)
[2017-04-03 14:21] LABS: BASO% 0.2 % (0.0-0.8); HEMATOCRIT 32.7 % (42.0-52.0); LYMPH# 1.25 X1000 (1.2-3.4); MANUAL DIFF NEEDED? YES; MCHC 30.6 g/dL (33-37); MCV 94.8 FL (81-99); MONO# 1.05 X1000 (0.11-0.59); MONO% 4.2 % (1.7-9.3); MPV 10.2 FL (7.4-10.4); NEUT% 86.6 % (42.2-75.2); PLT 297 X1000 (130-400); RBC 3.45 XMIL (4.7-6.1)
[2017-04-03 14:36] LABS: BANDS 4 % (0-1); LYMPHS 3 % (21-51); MONO 3 % (1-9)
[2017-04-03] MEDS: MAXIPIME 1 GM/NS 1 GM/50 ML IVPB IV SCH (15:23)
[2017-04-03 15:26] LABS: URINE MICRO REVIEW NEEDED? NO; URINE SOURCE CATH
[2017-04-03 15:32] LABS: BILIRUBIN URINE NEGATIVE (NEGATIVE); BLOOD URINE NEGATIVE (NEGATIVE); COLOR YELLOW; GLUCOSE URINE NEGATIVE (NEGATIVE); LEUKOCYTES URINE NEGATIVE (NEGATIVE); NITRITE URINE NEGATIVE (NEGATIVE); PH URINE 5.5; PROTEIN URINE 50 mg/dL (NEGATIVE); SP GRAVITY URINE 1.026; TURBIDITY URINE HAZY (CLEAR); UROBILINOGEN URINE NORMAL (NORMAL)
[2017-04-03 15:33] LABS: UR EPITHELIAL CELLS <10 /HPF (<10); URINE BACTERIA NEGATIVE /HPF; URINE RBC <10 /HPF (<10); URINE WBC <10 /HPF (<10)
[2017-04-03] MEDS: CUBICIN 500 MG in NS 100 ML IV SCH (16:19)
[2017-04-03] MEDS: TRANSDERM-SCOP TD SCH (21:19)
[2017-04-04] MEDS: MAXIPIME 1 GM/NS 1 GM/50 ML IVPB IV SCH ×2 (01:32→14:33)
[2017-04-04] MEDS: CLINIMIX E 4.25%-5% SOLUTION 1,000 ML IV SCH ×2 (06:41→17:52)
[2017-04-04 07:29] LABS: AGAP 13; ALBUMIN 2.1 g/dL (3.5-5.0); ALKALINE PHOSPHATASE 65 U/L (32-122); BUN 54 mg/dL (8-22); CALCIUM 9.1 mg/dL (8.8-10.2); CHLORIDE 122 mmol/L (98-107); COSMO 322; GOT 10 U/L (10-34); GPT 6 U/L (10-44); MAGNESIUM 2.1 mg/dL (1.5-2.7); POTASSIUM 3.8 mmol/L (3.5-5.1); SODIUM 154 mmol/L (136-145); TCO2 19 mmol/L (25-35); TOTAL BILIRUBIN 0.31 mg/dL (0.20-1.00); TOTAL PROTEIN 5.5 g/dL (6.3-8.3)
[2017-04-04 07:38] LABS: BASO% 0.3 % (0.0-0.8); EOS# 0.09 X1000 (0.0-0.7); EOS% 0.4 % (0.0-10.0); HEMATOCRIT 31.2 % (42.0-52.0); HEMOGLOBIN 9.4 g/dL (14.0-18.0); IMM GRAN# 1.63 X1000 (0.0-0.04); IMM GRAN% 7.3 % (0.0-0.5); LYMPH# 1.42 X1000 (1.2-3.4); LYMPH% 6.4 % (20.5-51.1); MANUAL DIFF NEEDED? YES; MCH 28.8 PG (27-31); MCHC 30.1 g/dL (33-37); MCV 95.7 FL (81-99); MONO% 5.8 % (1.7-9.3); MPV 10.5 FL (7.4-10.4); NEUT% 79.8 % (42.2-75.2); PLT 255 X1000 (130-400); RBC 3.26 XMIL (4.7-6.1)
[2017-04-04 08:04] LABS: BANDS 8 % (0-1); LYMPHS 2 % (21-51); MONO 6 % (1-9)
[2017-04-04] MEDS: LIPOSYN 20% 500 ML IV SCH (10:46)
[2017-04-04] MEDS: CUBICIN 500 MG in NS 100 ML IV SCH (15:47)
[2017-04-04] MEDS: PROTONIX IV SCH (15:53)
[2017-04-04] MEDS: SODIUM CHLORIDE 0.9% INJ SCH (15:53)
[2017-04-04 16:35] LABS: HEMATOCRIT 30.1 % (42.0-52.0); HEMOGLOBIN 9.2 g/dL (14.0-18.0)
[2017-04-04 21:09] LABS: HEMATOCRIT 34.4 % (42.0-52.0); HEMOGLOBIN 10.4 g/dL (14.0-18.0)
[2017-04-05] MEDS: MAXIPIME 1 GM/NS 1 GM/50 ML IVPB IV SCH (01:33)
[2017-04-05] MEDS: CLINIMIX E 4.25%-5% SOLUTION 1,000 ML IV SCH (04:36)
[2017-04-05] MEDS: SODIUM CHLORIDE 0.9% INJ SCH (04:54)
[2017-04-05] MEDS: PROTONIX IV SCH (04:54)
[2017-04-05 07:23] VITALS: BP 97/61
[2017-04-05 08:22] LABS: AGAP 20; ALKALINE PHOSPHATASE 71 U/L (32-122); BUN 55 mg/dL (8-22); CALCIUM 9.3 mg/dL (8.8-10.2); CHLORIDE 118 mmol/L (98-107); COSMO 318; GOT 45 U/L (10-34); GPT 19 U/L (10-44); POTASSIUM 4.9 mmol/L (3.5-5.1); SODIUM 152 mmol/L (136-145); TCO2 14 mmol/L (25-35); TOTAL BILIRUBIN 0.43 mg/dL (0.20-1.00); TOTAL PROTEIN 5.5 g/dL (6.3-8.3)
[2017-04-05 09:11] LABS: BASO% 0.7 % (0.0-0.8); EOS# 0.06 X1000 (0.0-0.7); EOS% 0.3 % (0.0-10.0); HEMOGLOBIN 8.4 g/dL (14.0-18.0); MANUAL DIFF NEEDED? YES; MCH 30.1 PG (27-31); MCV 100.4 FL (81-99); MONO# 1.08 X1000 (0.11-0.59); MONO% 4.6 % (1.7-9.3); MPV 11.2 FL (7.4-10.4); NEUT% 79.4 % (42.2-75.2); PLT 183 X1000 (130-400); RBC 2.79 XMIL (4.7-6.1)
[2017-04-05 09:14] LABS: ALLEN TEST YES; BE -5.8 mmoll (-3.0-3.0); BLOOD TYPE ARTERIAL; DRAW SITE L BRACHIAL; METHB 1.2 % (0.0-1.5); O2(CT) 12.9 mL/dL (15.0-23.0); PCO2(98.6) 22 mmHg (35-45); PO2(98.6) 75 mmHg (60-100); SAMPLE BLOOD; SAO2 98.3 % (95.0-100.0); THB 9.6 g/dL (11.5-17.4); pH(98.6) 7.48 (7.35-7.45)
[2017-04-05 09:15] LABS: MODALITY CANNULA
[2017-04-05 09:35] LABS: BANDS 4 % (0-1); EOS 2 % (1-10); LYMPHS 4 % (21-51); MONO 2 % (1-9)
[2017-04-05 09:41] LABS: ACETONE SERUM NEGATIVE (NEGATIVE)
[2017-04-05 09:47] LABS: ACETAMINOPHEN < 1.2 ug/mL (10-30)
== END 2017-04-03 14:44 | disposition short-term general hospital (02) ==
LOC: 3N 14:31
PROVIDERS: ADMIT Internal Medicine; ATTEND Internal Medicine

== ENCOUNTER 2017-04-03 14:45 | Inpatient (IN) ==
[2017-04-05] MEDS ORDERED: EMSAM TD SCH (12:45)
[2017-04-05] MEDS ORDERED: D5 1/2 NS 1,000 ML IV SCH (12:52)
[2017-04-05] MEDS: LOVENOX SUBQ SCH (15:25)
[2017-04-05] MEDS: MAXIPIME 1 GM/NS 1 GM/50 ML IVPB IV SCH (15:25)
[2017-04-05] MEDS: CLINIMIX E 4.25%-5% SOLUTION 1,000 ML IV SCH ×2 (15:28→23:52)
[2017-04-05] MEDS: CUBICIN 500 MG in NS 100 ML IV SCH (15:28)
[2017-04-05] MEDS: LIPOSYN 20% 250 ML IV SCH (15:28)
[2017-04-05] MEDS: SINEMET 10/100 PO SCH (23:52)
[2017-04-06] MEDS: MAXIPIME 1 GM/NS 1 GM/50 ML IVPB IV SCH ×2 (02:00→15:17)
[2017-04-06 07:11] LABS: BASO% 0.3 % (0.0-0.8); EOS% 0.7 % (0.0-10.0); HEMATOCRIT 28.1 % (42.0-52.0); HEMOGLOBIN 8.6 g/dL (14.0-18.0); IMM GRAN# 2.44 X1000 (0.0-0.04); LYMPH# 1.59 X1000 (1.2-3.4); LYMPH% 5.9 % (20.5-51.1); MANUAL DIFF NEEDED? YES; MCH 28.9 PG (27-31); MCHC 30.6 g/dL (33-37); MCV 94.3 FL (81-99); MONO# 1.27 X1000 (0.11-0.59); MONO% 4.7 % (1.7-9.3); MPV 10.8 FL (7.4-10.4); NEUT% 79.4 % (42.2-75.2); PLT 201 X1000 (130-400); RBC 2.98 XMIL (4.7-6.1)
[2017-04-06 07:15] LABS: INR 1.12; PROTIME 11.9 Seconds (9.2-11.7)
[2017-04-06 07:37] LABS: EOS 2 % (1-10); LYMPHS 12 % (21-51)
[2017-04-06 07:44] LABS: AGAP 14; ALKALINE PHOSPHATASE 82 U/L (32-122); BUN 52 mg/dL (8-22); CALCIUM 8.2 mg/dL (8.8-10.2); CHLORIDE 118 mmol/L (98-107); COSMO 307; GOT 52 U/L (10-34); GPT 28 U/L (10-44); MAGNESIUM 2.2 mg/dL (1.5-2.7); POTASSIUM 3.7 mmol/L (3.5-5.1); SODIUM 147 mmol/L (136-145); TCO2 15 mmol/L (25-35); TOTAL BILIRUBIN 0.31 mg/dL (0.20-1.00); TOTAL PROTEIN 5.4 g/dL (6.3-8.3)
--- NOTE | 2017-04-06 07:56 | Diag Imaging Result Doc PS360 ---
EXAM: CHEST-PORTABLE HISTORY: dyspnea TECHNIQUE: AP portable at 0500 COMMENT: There is ill-defined opacity in the right parahilar and lower lobe region. This was also the case at the time of the previous study of 04/03/2017. There has clearly been improvement, however, since the previous study of 03/16/2017. IMPRESSION: Right lower lobe pneumonia. Electronically signed by Lio Mejias 04/06/2017 7:53 AM
[2017-04-06] MEDS: SINEMET 10/100 PO SCH ×3 (08:05→22:00)
[2017-04-06 10:37] LABS: CK INDEX 11.6 (0.0-2.5); CK-MB 46.8 ng/mL (0.0-5.0)
[2017-04-06] MEDS ORDERED: NS 250 ML ONE (11:37)
[2017-04-06] MEDS: LIPOSYN 20% 250 ML IV SCH (15:16)
[2017-04-06] MEDS: CLINIMIX E 4.25%-5% SOLUTION 1,000 ML IV SCH ×2 (15:17→19:44)
[2017-04-06] MEDS: LOVENOX SUBQ SCH (15:18)
[2017-04-06] MEDS: CUBICIN 500 MG in NS 100 ML IV SCH (15:52)
[2017-04-07] MEDS: MAXIPIME 1 GM/NS 1 GM/50 ML IVPB IV SCH ×2 (01:32→13:14)
[2017-04-07] MEDS: CLINIMIX E 4.25%-5% SOLUTION 1,000 ML IV SCH ×4 (01:33→22:00)
[2017-04-07 07:00] LABS: BASO% 0.3 % (0.0-0.8); EOS# 0.18 X1000 (0.0-0.7); EOS% 0.9 % (0.0-10.0); HEMATOCRIT 27.1 % (42.0-52.0); IMM GRAN# 1.59 X1000 (0.0-0.04); IMM GRAN% 7.6 % (0.0-0.5); LYMPH# 1.53 X1000 (1.2-3.4); LYMPH% 7.3 % (20.5-51.1); MANUAL DIFF NEEDED? YES; MCH 28.2 PG (27-31); MCHC 29.5 g/dL (33-37); MCV 95.4 FL (81-99); MONO# 1.15 X1000 (0.11-0.59); MONO% 5.5 % (1.7-9.3); MPV 11.4 FL (7.4-10.4); NEUT% 78.4 % (42.2-75.2); PLT 187 X1000 (130-400); RBC 2.84 XMIL (4.7-6.1)
[2017-04-07 07:06] LABS: BANDS 1 % (0-1); LYMPHS 4 % (21-51); MONO 8 % (1-9)
[2017-04-07 07:12] LABS: AGAP 13; ALBUMIN 1.7 g/dL (3.5-5.0); ALKALINE PHOSPHATASE 85 U/L (32-122); BUN 45 mg/dL (8-22); CALCIUM 8.5 mg/dL (8.8-10.2); CHLORIDE 115 mmol/L (98-107); COSMO 300; GOT 43 U/L (10-34); GPT 19 U/L (10-44); POTASSIUM 3.9 mmol/L (3.5-5.1); SODIUM 145 mmol/L (136-145); TCO2 17 mmol/L (25-35); TOTAL BILIRUBIN 0.28 mg/dL (0.20-1.00)
[2017-04-07] MEDS: CUBICIN 500 MG in NS 100 ML IV SCH (12:41)
[2017-04-07] MEDS: LOVENOX SUBQ SCH (13:14)
[2017-04-07] MEDS: SINEMET 10/100 PO SCH (13:32)
[2017-04-07] MEDS ORDERED: SODIUM CHLORIDE 0.9% INJ SCH (15:45)
[2017-04-07] MEDS ORDERED: PROTONIX IV SCH (15:45)
[2017-04-07] MEDS ORDERED: ZOFRAN IV PRN (15:49)
[2017-04-07] MEDS: LIPOSYN 20% 250 ML IV SCH (16:06)
[2017-04-07 16:16] LABS: IRON SATURATION 21 %; TIBC 150 ug/dL; TOTAL IRON 32 ug/dL (53-167); UNBOUND IRON 118 ug/dL (112-346)
[2017-04-07] MEDS: PROTONIX IV SCH (16:33)
[2017-04-07] MEDS: SODIUM CHLORIDE 0.9% INJ SCH (16:33)
[2017-04-07 16:36] LABS: FERRITIN 316 ng/mL (30-400)
[2017-04-07 18:17] LABS: HEMATOCRIT 28.8 % (42.0-52.0); HEMOGLOBIN 8.7 g/dL (14.0-18.0)
[2017-04-07] MEDS: DUONEB (A & A) INH SCH (22:43)
[2017-04-08] MEDS: SINEMET 10/100 PO SCH ×3 (00:07→23:24)
[2017-04-08] MEDS: MAXIPIME 2 GM/NS 2 GM/100 ML IVPB IV SCH ×2 (01:26→13:41)
[2017-04-08] MEDS: DUONEB (A & A) INH SCH ×5 (03:51→22:32)
[2017-04-08 04:35] LABS: ALLEN TEST YES; BE -5.9 mmoll (-3.0-3.0); BLOOD TYPE ARTERIAL; DRAW SITE R RADIAL; O2(CT) 15.2 mL/dL (15.0-23.0); PCO2(98.6) 23 mmHg (35-45); PO2(98.6) 101 mmHg (60-100); SAMPLE BLOOD; SAO2 99.4 % (95.0-100.0); THB 11.1 g/dL (11.5-17.4); pH(98.6) 7.46 (7.35-7.45)
[2017-04-08 04:38] LABS: MODALITY CANNULA
--- NOTE | 2017-04-08 06:23 | Diag Imaging Result Doc PS360 ---
EXAM: CHEST-PORTABLE HISTORY: dyspnea TECHNIQUE: Portable AP COMPARISON: 04/06/2017 FINDINGS: A right-sided PICC line has been placed since the prior exam. The tip overlies the right atrium. Mild increased interstitial markings in the mid left lung similar to the prior study. Small infiltrate in the right base is slightly less pronounced on the prior exam. The heart is not enlarged. No pleural effusions identified. IMPRESSION: Mild interval improvement. Electronically signed by Jackson Langley 04/08/2017 6:20 AM
[2017-04-08 06:28] LABS: BASO% 0.2 % (0.0-0.8); EOS# 0.08 X1000 (0.0-0.7); EOS% 0.4 % (0.0-10.0); HEMATOCRIT 26.5 % (42.0-52.0); IMM GRAN# 1.28 X1000 (0.0-0.04); IMM GRAN% 5.7 % (0.0-0.5); LYMPH# 1.36 X1000 (1.2-3.4); MANUAL DIFF NEEDED? YES; MCH 28.9 PG (27-31); MCHC 30.2 g/dL (33-37); MCV 95.7 FL (81-99); MONO# 1.17 X1000 (0.11-0.59); MONO% 5.2 % (1.7-9.3); MPV 11.4 FL (7.4-10.4); NEUT% 82.5 % (42.2-75.2); PLT 198 X1000 (130-400); RBC 2.77 XMIL (4.7-6.1)
[2017-04-08 06:45] LABS: AGAP 14; BUN 42 mg/dL (8-22); CALCIUM 8.3 mg/dL (8.8-10.2); CHLORIDE 113 mmol/L (98-107); COSMO 296; POTASSIUM 4.1 mmol/L (3.5-5.1); SODIUM 143 mmol/L (136-145); TCO2 16 mmol/L (25-35)
[2017-04-08 07:26] LABS: BANDS 6 % (0-1); LYMPHS 4 % (21-51); NRBC 2 % (0-0)
[2017-04-08] MEDS: CENTRUM SILVER PO SCH (08:37)
[2017-04-08] MEDS: VITAMIN D PO SCH (08:37)
[2017-04-08] MEDS: FOLIC ACID PO SCH (08:38)
[2017-04-08] MEDS: ICAR-C PO SCH ×2 (08:38→22:37)
[2017-04-08] MEDS ORDERED: SANTYL OINT TOP SCH (09:00)
[2017-04-08] MEDS ORDERED: XYLOCAINE-MPF 2% ONE (10:37)
[2017-04-08] MEDS ORDERED: DIPRIVAN 1% ONE (10:37)
[2017-04-08] MEDS: CLINIMIX E 4.25%-5% SOLUTION 1,000 ML IV SCH ×2 (10:37→22:15)
[2017-04-08] MEDS: LIPOSYN 20% 250 ML IV SCH (13:41)
[2017-04-08 14:34] LABS: HEMATOCRIT 29.4 % (42.0-52.0)
[2017-04-08] MEDS: PROTONIX IV SCH (16:28)
[2017-04-08] MEDS: CARAFATE LIQUID PO SCH ×2 (16:28→22:37)
[2017-04-08] MEDS: REGLAN LIQUID PO SCH ×2 (16:28→23:24)
[2017-04-08] MEDS: SODIUM CHLORIDE 0.9% INJ SCH (16:29)
[2017-04-08 22:02] LABS: HEMATOCRIT 27.4 % (42.0-52.0); HEMOGLOBIN 8.4 g/dL (14.0-18.0)
[2017-04-09] MEDS: MAXIPIME 2 GM/NS 2 GM/100 ML IVPB IV SCH ×2 (02:59→13:35)
[2017-04-09] MEDS: DUONEB (A & A) INH SCH ×4 (03:49→22:43)
[2017-04-09] MEDS: SODIUM CHLORIDE 0.9% INJ SCH (04:09)
[2017-04-09] MEDS: PROTONIX IV SCH ×3 (04:09→17:29)
[2017-04-09 06:58] LABS: BASO% 0.2 % (0.0-0.8); EOS# 0.08 X1000 (0.0-0.7); EOS% 0.5 % (0.0-10.0); HEMATOCRIT 24.1 % (42.0-52.0); HEMOGLOBIN 7.3 g/dL (14.0-18.0); IMM GRAN# 0.85 X1000 (0.0-0.04); IMM GRAN% 4.8 % (0.0-0.5); LYMPH# 1.25 X1000 (1.2-3.4); LYMPH% 7.1 % (20.5-51.1); MANUAL DIFF NEEDED? YES; MCH 29.6 PG (27-31); MCHC 30.3 g/dL (33-37); MCV 97.6 FL (81-99); MONO# 1.04 X1000 (0.11-0.59); MONO% 5.9 % (1.7-9.3); MPV 11.6 FL (7.4-10.4); NEUT% 81.5 % (42.2-75.2); PLT 189 X1000 (130-400); RBC 2.47 XMIL (4.7-6.1)
[2017-04-09 07:23] LABS: AGAP 12; BUN 38 mg/dL (8-22); CALCIUM 8.4 mg/dL (8.8-10.2); CHLORIDE 98 mmol/L (98-107); COSMO 282; SODIUM 125 mmol/L (136-145); TCO2 15 mmol/L (25-35)
[2017-04-09 07:30] LABS: BANDS 2 % (0-1); LYMPHS 6 % (21-51); MONO 6 % (1-9)
[2017-04-09 07:31] LABS: HYPOCHROM 1+; LARGE PLATELETS 1+; POLYCHROM 1+
[2017-04-09] MEDS: REGLAN LIQUID PO SCH ×3 (07:36→17:31)
[2017-04-09] MEDS: CARAFATE LIQUID PO SCH ×4 (07:36→21:26)
[2017-04-09 07:47] LABS: POTASSIUM 6.8 mmol/L (3.5-5.1)
[2017-04-09 08:30] LABS: AGAP 14; BUN 42 mg/dL (8-22); CALCIUM 8.3 mg/dL (8.8-10.2); CHLORIDE 106 mmol/L (98-107); COSMO 285; POTASSIUM 4.4 mmol/L (3.5-5.1); SODIUM 136 mmol/L (136-145); TCO2 16 mmol/L (25-35)
[2017-04-09] MEDS: FOLIC ACID PO SCH (10:20)
[2017-04-09] MEDS: CENTRUM SILVER PO SCH (10:20)
[2017-04-09] MEDS: ICAR-C PO SCH (10:21)
[2017-04-09] MEDS: SINEMET 10/100 PO SCH ×2 (10:21→21:26)
[2017-04-09] MEDS: CLINIMIX E 4.25%-5% SOLUTION 1,000 ML IV SCH ×2 (10:30→21:22)
[2017-04-09] MEDS: LIPOSYN 20% 250 ML IV SCH (14:00)
[2017-04-09] MEDS: SANTYL OINT TOP SCH (17:29)
[2017-04-10] MEDS: ICAR-C PO SCH ×3 (02:12→23:45)
[2017-04-10] MEDS: REGLAN LIQUID PO SCH ×5 (02:12→23:42)
[2017-04-10] MEDS: MAXIPIME 2 GM/NS 2 GM/100 ML IVPB IV SCH ×2 (02:36→15:32)
[2017-04-10] MEDS: DUONEB (A & A) INH SCH ×4 (03:48→22:40)
[2017-04-10] MEDS: PROTONIX IV SCH ×3 (04:13→15:34)
[2017-04-10] MEDS: SODIUM CHLORIDE 0.9% INJ SCH (04:13)
[2017-04-10] MEDS: CARAFATE LIQUID PO SCH ×4 (06:07→23:41)
[2017-04-10 07:42] LABS: BASO% 0.2 % (0.0-0.8); EOS# 0.07 X1000 (0.0-0.7); EOS% 0.3 % (0.0-10.0); HEMATOCRIT 24.5 % (42.0-52.0); HEMOGLOBIN 7.4 g/dL (14.0-18.0); IMM GRAN# 0.93 X1000 (0.0-0.04); IMM GRAN% 4.4 % (0.0-0.5); LYMPH% 6.1 % (20.5-51.1); MANUAL DIFF NEEDED? YES; MCHC 30.2 g/dL (33-37); MCV 96.1 FL (81-99); MONO# 1.35 X1000 (0.11-0.59); MONO% 6.3 % (1.7-9.3); MPV 11.7 FL (7.4-10.4); NEUT% 82.7 % (42.2-75.2); PLT 232 X1000 (130-400); RBC 2.55 XMIL (4.7-6.1)
[2017-04-10] MEDS: CLINIMIX E 4.25%-5% SOLUTION 1,000 ML IV SCH ×2 (08:30→19:21)
[2017-04-10 08:32] LABS: AGAP 16; BUN 41 mg/dL (8-22); CALCIUM 8.9 mg/dL (8.8-10.2); CHLORIDE 104 mmol/L (98-107); COSMO 284; SODIUM 137 mmol/L (136-145); TCO2 17 mmol/L (25-35)
[2017-04-10 08:35] LABS: BANDS 4 % (0-1); LYMPHS 10 % (21-51)
[2017-04-10] MEDS: CENTRUM SILVER PO SCH (09:00)
[2017-04-10] MEDS: FOLIC ACID PO SCH (09:00)
[2017-04-10] MEDS: SINEMET 10/100 PO SCH ×2 (14:15→23:42)
[2017-04-10] MEDS: LIPOSYN 20% 250 ML IV SCH (15:33)
[2017-04-10] MEDS: SANTYL OINT TOP SCH (15:34)
[2017-04-11] MEDS: MAXIPIME 2 GM/NS 2 GM/100 ML IVPB IV SCH ×2 (01:18→12:06)
[2017-04-11] MEDS: PROTONIX IV SCH ×2 (03:15→16:16)
[2017-04-11] MEDS: SODIUM CHLORIDE 0.9% INJ SCH ×2 (03:15→16:16)
[2017-04-11] MEDS: DUONEB (A & A) INH SCH ×4 (03:28→23:05)
[2017-04-11] MEDS: CLINIMIX E 4.25%-5% SOLUTION 1,000 ML IV SCH ×4 (05:42→18:36)
[2017-04-11] MEDS: CARAFATE LIQUID PO SCH ×4 (06:08→20:46)
[2017-04-11] MEDS: REGLAN LIQUID PO SCH ×4 (06:09→20:46)
[2017-04-11 07:06] LABS: MANUAL DIFF NEEDED? NO
[2017-04-11 07:33] LABS: AGAP 13; BUN 40 mg/dL (8-22); CALCIUM 8.4 mg/dL (8.8-10.2); CHLORIDE 105 mmol/L (98-107); COSMO 280; POTASSIUM 3.9 mmol/L (3.5-5.1); SODIUM 135 mmol/L (136-145); TCO2 17 mmol/L (25-35)
[2017-04-11 07:43] LABS: BASO% 0.2 % (0.0-0.8); EOS# 0.06 X1000 (0.0-0.7); EOS% 0.3 % (0.0-10.0); HEMOGLOBIN 7.3 g/dL (14.0-18.0); IMM GRAN# 0.56 X1000 (0.0-0.04); IMM GRAN% 3.1 % (0.0-0.5); LYMPH# 1.11 X1000 (1.2-3.4); LYMPH% 6.2 % (20.5-51.1); MCH 28.4 PG (27-31); MCHC 30.4 g/dL (33-37); MCV 93.4 FL (81-99); MONO# 1.09 X1000 (0.11-0.59); MONO% 6.1 % (1.7-9.3); MPV 10.9 FL (7.4-10.4); NEUT% 84.1 % (42.2-75.2); PLT 227 X1000 (130-400); RBC 2.57 XMIL (4.7-6.1)
--- NOTE | 2017-04-11 10:48 | Diag Imaging Result Doc PS360 ---
CHEST-1 VIEW - 04/11/2017 INDICATION: pneumonia TECHNIQUE: COMPARISON: 04/08/2017 FINDINGS: Stable right PICC line. Lung volumes are even lower. There is worsening in the right perihilar infiltrate. Stable consolidation in the left apex and left lower lobe. Heart size remains normal. IMPRESSION: Lower lung volumes. Worsening right perihilar infiltrate. Electronically signed by Demetrius Tong 04/11/2017 10:45 AM
[2017-04-11] MEDS: CENTRUM SILVER PO SCH (12:01)
[2017-04-11] MEDS: FOLIC ACID PO SCH (12:02)
[2017-04-11] MEDS: ICAR-C PO SCH ×2 (12:03→20:46)
[2017-04-11] MEDS: SANTYL OINT TOP SCH (12:04)
[2017-04-11] MEDS: SINEMET 10/100 PO SCH ×2 (12:05→20:47)
[2017-04-11] MEDS: LIPOSYN 20% 250 ML IV SCH (16:13)
[2017-04-11] MEDS ORDERED: LASIX IV SCH (18:00)
[2017-04-11] MEDS: SODIUM BICARBONATE PO SCH (20:47)
[2017-04-12] MEDS: MAXIPIME 2 GM/NS 2 GM/100 ML IVPB IV SCH ×2 (00:12→14:36)
[2017-04-12] MEDS: DUONEB (A & A) INH SCH ×4 (03:05→22:19)
[2017-04-12] MEDS: PROTONIX IV SCH ×2 (03:55→18:39)
[2017-04-12] MEDS: SODIUM CHLORIDE 0.9% INJ SCH ×2 (03:55→18:39)
[2017-04-12] MEDS: CLINIMIX E 4.25%-5% SOLUTION 1,000 ML IV SCH ×3 (03:56→18:38)
[2017-04-12] MEDS: CARAFATE LIQUID PO SCH ×4 (06:10→21:50)
[2017-04-12] MEDS: REGLAN LIQUID PO SCH ×4 (06:11→21:51)
[2017-04-12 06:57] LABS: BASO% 0.2 % (0.0-0.8); EOS# 0.03 X1000 (0.0-0.7); EOS% 0.2 % (0.0-10.0); HEMATOCRIT 27.9 % (42.0-52.0); IMM GRAN# 0.48 X1000 (0.0-0.04); IMM GRAN% 2.7 % (0.0-0.5); LYMPH# 0.85 X1000 (1.2-3.4); LYMPH% 4.8 % (20.5-51.1); MANUAL DIFF NEEDED? YES; MCH 30.4 PG (27-31); MCHC 32.3 g/dL (33-37); MCV 94.3 FL (81-99); MONO# 1.18 X1000 (0.11-0.59); MONO% 6.6 % (1.7-9.3); MPV 11.5 FL (7.4-10.4); NEUT% 85.5 % (42.2-75.2); PLT 212 X1000 (130-400); RBC 2.96 XMIL (4.7-6.1)
[2017-04-12 07:12] LABS: AGAP 15; ALBUMIN 1.6 g/dL (3.5-5.0); ALKALINE PHOSPHATASE 87 U/L (32-122); BUN 37 mg/dL (8-22); CALCIUM 8.3 mg/dL (8.8-10.2); CHLORIDE 99 mmol/L (98-107); COSMO 278; GOT 12 U/L (10-34); GPT 15 U/L (10-44); SODIUM 129 mmol/L (136-145); TCO2 15 mmol/L (25-35); TOTAL BILIRUBIN 1.08 mg/dL (0.20-1.00); TOTAL PROTEIN 5.1 g/dL (6.3-8.3)
[2017-04-12 07:23] LABS: BANDS 6 % (0-1); LYMPHS 14 % (21-51); NRBC 1 % (0-0)
[2017-04-12 07:36] LABS: POTASSIUM 5.4 mmol/L (3.5-5.1)
[2017-04-12] MEDS: ICAR-C PO SCH ×3 (10:24→21:51)
[2017-04-12] MEDS: FOLIC ACID PO SCH ×2 (10:25→12:37)
[2017-04-12] MEDS: SANTYL OINT TOP SCH (10:25)
[2017-04-12] MEDS: CENTRUM SILVER PO SCH ×2 (10:25→12:30)
[2017-04-12] MEDS: SINEMET 10/100 PO SCH ×3 (10:25→21:51)
[2017-04-12] MEDS: SODIUM BICARBONATE PO SCH ×3 (10:25→21:51)
[2017-04-12] MEDS: LIPOSYN 20% 250 ML IV SCH (14:37)
[2017-04-12] MEDS ORDERED: VANCOMYCIN IV PER PHARMACY MISC SCH (15:00)
[2017-04-12] MEDS ORDERED: VANCOMYCIN 1.5 GM in NS 250 ML IV ONE (16:00)
[2017-04-13] MEDS: MAXIPIME 2 GM/NS 2 GM/100 ML IVPB IV SCH ×2 (00:06→16:11)
[2017-04-13] MEDS: PROTONIX IV SCH ×2 (04:29→16:17)
[2017-04-13] MEDS: SODIUM CHLORIDE 0.9% INJ SCH (04:29)
[2017-04-13] MEDS: CLINIMIX E 4.25%-5% SOLUTION 1,000 ML IV SCH ×3 (04:30→23:00)
[2017-04-13] MEDS: DUONEB (A & A) INH SCH ×4 (04:30→22:33)
[2017-04-13] MEDS: LIPOSYN 20% 250 ML IV SCH ×2 (06:16→16:14)
[2017-04-13 07:02] LABS: BASO% 0.2 % (0.0-0.8); EOS# 0.03 X1000 (0.0-0.7); EOS% 0.2 % (0.0-10.0); HEMATOCRIT 27.1 % (42.0-52.0); HEMOGLOBIN 8.8 g/dL (14.0-18.0); IMM GRAN# 0.29 X1000 (0.0-0.04); IMM GRAN% 2.1 % (0.0-0.5); LYMPH# 0.74 X1000 (1.2-3.4); LYMPH% 5.2 % (20.5-51.1); MANUAL DIFF NEEDED? YES; MCH 29.6 PG (27-31); MCHC 32.5 g/dL (33-37); MCV 91.2 FL (81-99); MONO# 0.83 X1000 (0.11-0.59); MONO% 5.9 % (1.7-9.3); MPV 10.8 FL (7.4-10.4); NEUT% 86.4 % (42.2-75.2); PLT 215 X1000 (130-400); RBC 2.97 XMIL (4.7-6.1)
[2017-04-13 07:17] LABS: LYMPHS 10 % (21-51)
[2017-04-13 07:29] LABS: AGAP 10; BUN 36 mg/dL (8-22); CALCIUM 8.1 mg/dL (8.8-10.2); CHLORIDE 104 mmol/L (98-107); COSMO 273; POTASSIUM 3.7 mmol/L (3.5-5.1); SODIUM 132 mmol/L (136-145); TCO2 18 mmol/L (25-35)
[2017-04-13] MEDS: CARAFATE LIQUID PO SCH ×4 (10:07→22:00)
[2017-04-13] MEDS: SODIUM BICARBONATE PO SCH ×2 (10:08→21:59)
[2017-04-13] MEDS: REGLAN LIQUID PO SCH ×3 (10:08→22:00)
[2017-04-13] MEDS: ICAR-C PO SCH ×2 (10:09→21:59)
[2017-04-13] MEDS: FOLIC ACID PO SCH (10:09)
[2017-04-13] MEDS: CENTRUM SILVER PO SCH (10:09)
[2017-04-13] MEDS: SANTYL OINT TOP SCH (10:10)
[2017-04-13] MEDS: SINEMET 10/100 PO SCH ×2 (10:10→21:59)
[2017-04-13] MEDS: VANCOMYCIN 1 GM/NS 1 GM/250 ML IVPB IV SCH (16:16)
[2017-04-14] MEDS: SODIUM CHLORIDE 0.9% INJ SCH (03:12)
[2017-04-14] MEDS: PROTONIX IV SCH ×2 (03:12→18:23)
[2017-04-14] MEDS: DUONEB (A & A) INH SCH ×4 (03:37→22:23)
[2017-04-14] MEDS: CARAFATE LIQUID PO SCH ×4 (06:33→21:07)
[2017-04-14] MEDS: REGLAN LIQUID PO SCH ×4 (06:33→21:08)
[2017-04-14 07:04] LABS: BASO% 0.2 % (0.0-0.8); EOS# 0.02 X1000 (0.0-0.7); EOS% 0.1 % (0.0-10.0); HEMATOCRIT 27.9 % (42.0-52.0); HEMOGLOBIN 9.1 g/dL (14.0-18.0); IMM GRAN# 0.14 X1000 (0.0-0.04); LYMPH# 0.77 X1000 (1.2-3.4); LYMPH% 5.4 % (20.5-51.1); MANUAL DIFF NEEDED? YES; MCH 30.3 PG (27-31); MCHC 32.6 g/dL (33-37); MONO# 0.84 X1000 (0.11-0.59); MONO% 5.9 % (1.7-9.3); MPV 10.9 FL (7.4-10.4); NEUT% 87.4 % (42.2-75.2); PLT 218 X1000 (130-400)
[2017-04-14 07:45] LABS: AGAP 19; BUN 34 mg/dL (8-22); CALCIUM 8.6 mg/dL (8.8-10.2); CHLORIDE 98 mmol/L (98-107); COSMO 279; POTASSIUM 5.3 mmol/L (3.5-5.1); SODIUM 130 mmol/L (136-145); TCO2 13 mmol/L (25-35)
[2017-04-14 07:56] LABS: LYMPHS 2 % (21-51); MONO 1 % (1-9)
[2017-04-14] MEDS: SANTYL OINT TOP SCH (10:22)
[2017-04-14] MEDS: MAXIPIME 2 GM/NS 2 GM/100 ML IVPB IV SCH ×2 (13:37)
[2017-04-14] MEDS: LIPOSYN 20% 250 ML IV SCH (13:37)
[2017-04-14] MEDS: CLINIMIX E 4.25%-5% SOLUTION 1,000 ML IV SCH (13:38)
[2017-04-14] MEDS: CENTRUM SILVER PO SCH (15:22)
[2017-04-14] MEDS: ICAR-C PO SCH ×2 (15:23→21:07)
[2017-04-14] MEDS: FOLIC ACID PO SCH (15:23)
[2017-04-14] MEDS: SINEMET 10/100 PO SCH ×2 (15:24→21:08)
[2017-04-14] MEDS: SODIUM BICARBONATE PO SCH ×2 (15:25→21:08)
[2017-04-14] MEDS: VANCOMYCIN 1 GM/NS 1 GM/250 ML IVPB IV SCH (18:22)
[2017-04-15] MEDS: CLINIMIX E 4.25%-5% SOLUTION 1,000 ML IV SCH (01:43)
[2017-04-15] MEDS: MAXIPIME 2 GM/NS 2 GM/100 ML IVPB IV SCH ×2 (01:48→14:24)
[2017-04-15] MEDS: DUONEB (A & A) INH SCH ×4 (03:31→21:00)
[2017-04-15] MEDS: PROTONIX IV SCH ×2 (05:43→17:40)
[2017-04-15] MEDS: SODIUM CHLORIDE 0.9% INJ SCH (05:43)
[2017-04-15 06:26] LABS: AGAP 14; BUN 34 mg/dL (8-22); CALCIUM 8.6 mg/dL (8.8-10.2); CHLORIDE 96 mmol/L (98-107); COSMO 273; POTASSIUM 5.6 mmol/L (3.5-5.1); SODIUM 125 mmol/L (136-145); TCO2 15 mmol/L (25-35)
[2017-04-15 06:31] LABS: BASO% 0.2 % (0.0-0.8); EOS# 0.04 X1000 (0.0-0.7); EOS% 0.3 % (0.0-10.0); HEMATOCRIT 28.6 % (42.0-52.0); HEMOGLOBIN 8.9 g/dL (14.0-18.0); IMM GRAN# 0.12 X1000 (0.0-0.04); LYMPH# 0.71 X1000 (1.2-3.4); LYMPH% 6.2 % (20.5-51.1); MANUAL DIFF NEEDED? YES; MCH 29.6 PG (27-31); MCHC 31.1 g/dL (33-37); MONO# 0.64 X1000 (0.11-0.59); MONO% 5.6 % (1.7-9.3); MPV 10.8 FL (7.4-10.4); NEUT% 86.7 % (42.2-75.2); PLT 209 X1000 (130-400); RBC 3.01 XMIL (4.7-6.1)
[2017-04-15 06:46] LABS: BANDS 2 % (0-1); LYMPHS 8 % (21-51); MONO 6 % (1-9)
[2017-04-15] MEDS ORDERED: ALBUTEROL 0.5% INH CONC FOR HYPERKALEMIA INH ONE (06:47)
[2017-04-15] MEDS ORDERED: SODIUM BICARBONATE 8.4% IV PUSH ONE (06:48)
[2017-04-15] MEDS ORDERED: HUMULIN R IV ONE (06:49)
[2017-04-15] MEDS: REGLAN LIQUID PO SCH ×4 (06:57→20:56)
[2017-04-15] MEDS: CARAFATE LIQUID PO SCH ×4 (06:57→20:54)
[2017-04-15] MEDS: NS 1,000 ML IV SCH ×2 (07:15→17:42)
--- NOTE | 2017-04-15 07:18 | Diag Imaging Result Doc PS360 ---
EXAM: CHEST-PORTABLE HISTORY: pneumonia TECHNIQUE: Portable COMPARISON: 04/11/2017 FINDINGS: No change in the right-sided PICC line. There are infiltrates in the right base. Heart is not enlarged. The vessels are not distended. Granuloma is found in the mid left lung. The overall appearance of the chest is quite similar to that of the prior exam. IMPRESSION: Stable chest. Electronically signed by Jackson Langley 04/15/2017 7:15 AM
[2017-04-15] MEDS: MORPHINE IV PRN (08:53)
[2017-04-15] MEDS: CENTRUM SILVER PO SCH (08:53)
[2017-04-15] MEDS: VITAMIN D PO SCH (08:54)
[2017-04-15] MEDS: SINEMET 10/100 PO SCH ×2 (08:54→20:56)
[2017-04-15] MEDS: ICAR-C PO SCH ×2 (08:54→20:55)
[2017-04-15] MEDS: SODIUM BICARBONATE PO SCH ×2 (08:54→20:56)
[2017-04-15] MEDS: FOLIC ACID PO SCH (08:54)
[2017-04-15 15:35] LABS: ALBUMIN 1.4 g/dL (3.5-5.0); BUN 28 mg/dL (8-22); CHLORIDE 122 mmol/L (98-107); COSMO 278; POTASSIUM 2.8 mmol/L (3.5-5.1); SODIUM 137 mmol/L (136-145); TCO2 16 mmol/L (25-35)
[2017-04-15 15:36] LABS: AGAP 1
[2017-04-15 15:37] LABS: CALCIUM 6.7 mg/dL (8.8-10.2)
[2017-04-15] MEDS: VANCOMYCIN 1,300 MG in NS 250 ML IV SCH (17:40)
[2017-04-15] MEDS: CARDIZEM 100 MG/NS 100 MG/100 ML IVPB IV SCH (19:26)
[2017-04-15 22:00] LABS: AGAP 15; ALBUMIN 1.7 g/dL (3.5-5.0); ALKALINE PHOSPHATASE 93 U/L (32-122); BUN 30 mg/dL (8-22); CALCIUM 8.3 mg/dL (8.8-10.2); CHLORIDE 106 mmol/L (98-107); COSMO 283; GOT 10 U/L (10-34); GPT 10 U/L (10-44); POTASSIUM 3.3 mmol/L (3.5-5.1); SODIUM 139 mmol/L (136-145); TCO2 18 mmol/L (25-35); TOTAL BILIRUBIN 0.77 mg/dL (0.20-1.00); TOTAL PROTEIN 5.2 g/dL (6.3-8.3)
[2017-04-16] MEDS: MAXIPIME 2 GM/NS 2 GM/100 ML IVPB IV SCH ×2 (00:44→13:59)
[2017-04-16] MEDS: DUONEB (A & A) INH SCH ×4 (02:45→22:00)
[2017-04-16] MEDS: PROTONIX IV SCH ×2 (03:57→17:12)
[2017-04-16] MEDS: NS 1,000 ML IV SCH (03:57)
[2017-04-16 05:53] LABS: MANUAL DIFF NEEDED? NO
[2017-04-16] MEDS: CARDIZEM 100 MG/NS 100 MG/100 ML IVPB IV SCH (06:01)
[2017-04-16] MEDS: CARAFATE LIQUID PO SCH ×5 (06:02→20:57)
[2017-04-16] MEDS: REGLAN LIQUID PO SCH ×3 (06:02→16:34)
[2017-04-16 06:31] LABS: AGAP 13; BUN 26 mg/dL (8-22); CALCIUM 7.6 mg/dL (8.8-10.2); CHLORIDE 112 mmol/L (98-107); COSMO 289; SODIUM 143 mmol/L (136-145); TCO2 18 mmol/L (25-35)
[2017-04-16 06:33] LABS: BASO% 0.4 % (0.0-0.8); EOS# 0.05 X1000 (0.0-0.7); EOS% 0.7 % (0.0-10.0); HEMATOCRIT 23.3 % (42.0-52.0); HEMOGLOBIN 7.3 g/dL (14.0-18.0); IMM GRAN# 0.07 X1000 (0.0-0.04); IMM GRAN% 0.9 % (0.0-0.5); LYMPH# 0.74 X1000 (1.2-3.4); LYMPH% 9.7 % (20.5-51.1); MCH 29.1 PG (27-31); MCHC 31.3 g/dL (33-37); MCV 92.8 FL (81-99); MONO# 0.51 X1000 (0.11-0.59); MONO% 6.7 % (1.7-9.3); MPV 10.6 FL (7.4-10.4); NEUT% 81.6 % (42.2-75.2); PLT 155 X1000 (130-400); RBC 2.51 XMIL (4.7-6.1)
[2017-04-16] MEDS ORDERED: POTASSIUM CHLORIDE 60 MEQ in NS 500 ML IV ONE (07:21)
[2017-04-16] MEDS: SODIUM BICARBONATE PO SCH ×2 (08:16→20:57)
[2017-04-16] MEDS: FOLIC ACID PO SCH (08:16)
[2017-04-16] MEDS: CENTRUM SILVER PO SCH (08:16)
[2017-04-16] MEDS: ICAR-C PO SCH ×2 (08:17→20:57)
[2017-04-16] MEDS: SINEMET 10/100 PO SCH (08:17)
[2017-04-16] MEDS: SANTYL OINT TOP SCH (08:57)
[2017-04-16] MEDS: 1/2 NS 1,000 ML IV SCH (09:35)
[2017-04-16] MEDS: SODIUM CHLORIDE 0.9% INJ SCH (17:12)
[2017-04-16 17:39] LABS: MAGNESIUM 1.8 mg/dL (1.5-2.7); POTASSIUM 3.9 mmol/L (3.5-5.1)
[2017-04-16] MEDS: VANCOMYCIN 1,300 MG in NS 250 ML IV SCH (18:15)
[2017-04-17] MEDS: MORPHINE IV PRN (00:43)
[2017-04-17] MEDS: 1/2 NS 1,000 ML IV SCH ×2 (00:43→16:15)
[2017-04-17] MEDS: MAXIPIME 2 GM/NS 2 GM/100 ML IVPB IV SCH ×2 (00:44→13:37)
[2017-04-17] MEDS: DUONEB (A & A) INH SCH ×4 (03:00→21:00)
[2017-04-17] MEDS: PROTONIX IV SCH ×2 (04:20→16:15)
[2017-04-17 05:36] LABS: MANUAL DIFF NEEDED? NO
[2017-04-17 05:50] LABS: BASO% 0.6 % (0.0-0.8); EOS# 0.11 X1000 (0.0-0.7); EOS% 1.4 % (0.0-10.0); HEMATOCRIT 26.5 % (42.0-52.0); HEMOGLOBIN 8.3 g/dL (14.0-18.0); IMM GRAN# 0.07 X1000 (0.0-0.04); IMM GRAN% 0.9 % (0.0-0.5); LYMPH# 0.73 X1000 (1.2-3.4); LYMPH% 9.4 % (20.5-51.1); MCH 29.2 PG (27-31); MCHC 31.3 g/dL (33-37); MCV 93.3 FL (81-99); MONO# 0.49 X1000 (0.11-0.59); MONO% 6.3 % (1.7-9.3); MPV 10.6 FL (7.4-10.4); NEUT% 81.4 % (42.2-75.2); PLT 156 X1000 (130-400); RBC 2.84 XMIL (4.7-6.1)
[2017-04-17 05:58] LABS: AGAP 16; BUN 23 mg/dL (8-22); CALCIUM 8.1 mg/dL (8.8-10.2); CHLORIDE 105 mmol/L (98-107); COSMO 276; MAGNESIUM 1.8 mg/dL (1.5-2.7); POTASSIUM 3.5 mmol/L (3.5-5.1); SODIUM 137 mmol/L (136-145); TCO2 16 mmol/L (25-35)
[2017-04-17] MEDS: CARAFATE LIQUID PO SCH ×4 (06:00→21:15)
[2017-04-17] MEDS: FOLIC ACID PO SCH (08:02)
[2017-04-17] MEDS: ICAR-C PO SCH ×2 (08:03→22:11)
[2017-04-17] MEDS: SODIUM BICARBONATE PO SCH ×2 (08:03→21:15)
[2017-04-17] MEDS: SANTYL OINT TOP SCH ×2 (09:56→22:00)
[2017-04-17] MEDS ORDERED: POTASSIUM PHOSPHATE 30 MMOL in NS 250 ML IV ONE (16:00)
[2017-04-17] MEDS: SODIUM CHLORIDE 0.9% INJ SCH (16:15)
[2017-04-17] MEDS: VANCOMYCIN 1,300 MG in NS 250 ML IV SCH (18:55)
[2017-04-18] MEDS: MAXIPIME 2 GM/NS 2 GM/100 ML IVPB IV SCH (01:36)
[2017-04-18] MEDS: DUONEB (A & A) INH SCH (03:00)
[2017-04-18] MEDS: PROTONIX IV SCH (03:23)
[2017-04-18] MEDS: MORPHINE IV PRN ×2 (04:46→11:40)
[2017-04-18 05:23] LABS: HEMATOCRIT 26.2 % (42.0-52.0); HEMOGLOBIN 8.3 g/dL (14.0-18.0); MCH 30.2 PG (27-31); MCHC 31.7 g/dL (33-37); MCV 95.3 FL (81-99); RBC 2.75 XMIL (4.7-6.1)
[2017-04-18 05:59] LABS: AGAP 17; BUN 21 mg/dL (8-22); CALCIUM 7.8 mg/dL (8.8-10.2); CHLORIDE 105 mmol/L (98-107); COSMO 275; POTASSIUM 3.6 mmol/L (3.5-5.1); SODIUM 137 mmol/L (136-145); TCO2 15 mmol/L (25-35)
[2017-04-18] MEDS: CARAFATE LIQUID PO SCH (06:27)
--- NOTE | 2017-04-18 07:55 | Diag Imaging Result Doc PS360 ---
EXAM: CHEST-PORTABLE INDICATION: pneumonia TECHNIQUE: One view COMPARISON: 04/15/2017 FINDINGS: The right PICC line is stable. Infiltrate and/or atelectasis at the right lung base is unchanged. No new consolidation is appreciated. Cardiac silhouette is stable. IMPRESSION: Essentially stable chest. Electronically signed by Catracho Sin 04/18/2017 7:53 AM
[2017-04-18] MEDS: 1/2 NS 1,000 ML IV SCH ×2 (09:12→13:02)
[2017-04-18] MEDS ORDERED: HALDOL IV PRN (09:58)
[2017-04-19] MEDS: MORPHINE IV PRN ×2 (02:39→17:34)
[2017-04-19] MEDS: 1/2 NS 1,000 ML IV SCH (12:45)
[2017-04-20] MEDS: MORPHINE IV PRN ×5 (05:01→23:56)
[2017-04-20] MEDS ORDERED: VANCOMYCIN IV PER PHARMACY MISC SCH (07:45)
[2017-04-20] MEDS: MAXIPIME 1 GM in NS 50 ML IV SCH ×2 (09:25→20:43)
[2017-04-20] MEDS: 1/2 NS 1,000 ML IV SCH ×2 (09:27→11:52)
[2017-04-20] MEDS ORDERED: VANCOMYCIN 1,300 MG in NS 250 ML IV SCH (12:00)
[2017-04-20] MEDS: VANCOMYCIN 1,300 MG in NS 250 ML IV SCH (12:30)
[2017-04-20] MEDS: LIPOSYN 20% 250 ML IV SCH (17:03)
[2017-04-20] MEDS: CLINIMIX E 4.25%-5% SOLUTION 1,000 ML IV SCH (17:03)
[2017-04-21 00:31] LABS: AGAP 17; ALBUMIN 1.9 g/dL (3.5-5.0); ALKALINE PHOSPHATASE 70 U/L (32-122); BUN 21 mg/dL (8-22); CALCIUM 7.9 mg/dL (8.8-10.2); CHLORIDE 104 mmol/L (98-107); COSMO 279; GOT 12 U/L (10-34); GPT 9 U/L (10-44); MAGNESIUM 1.6 mg/dL (1.5-2.7); POTASSIUM 2.7 mmol/L (3.5-5.1); SODIUM 137 mmol/L (136-145); TCO2 16 mmol/L (25-35); TOTAL BILIRUBIN 0.53 mg/dL (0.20-1.00); TOTAL PROTEIN 4.8 g/dL (6.3-8.3)
[2017-04-21] MEDS ORDERED: POTASSIUM CHLORIDE 40 MEQ/SWI 40 MEQ/100 ML IVPB IV ONE (01:19)
[2017-04-21] MEDS ORDERED: MAGNESIUM SULFATE 1 GM/D5W 1 GM/100 ML IVPB IV ONE (01:19)
[2017-04-21] MEDS: CLINIMIX E 4.25%-5% SOLUTION 1,000 ML IV SCH ×3 (03:18→23:13)
--- NOTE | 2017-04-21 09:01 | Diag Imaging Result Doc PS360 ---
EXAM: CHEST-1 VIEW - 04/21/2017 HISTORY: pneumonia TECHNIQUE: Portable chest 0840 COMPARISON: 04/18/2017 FINDINGS: Heart size is upper normal stable. There is infiltrate the right base which appears of decreased mildly. The left lung appears essentially clear. There is no pleural effusion or pneumothorax identified. PICC remains in place. IMPRESSION: Mild decrease in right basilar infiltrate. Electronically signed by Bradly Ariza 04/21/2017 8:59 AM
[2017-04-21 09:20] LABS: BASO% 0.2 % (0.0-0.8); EOS# 0.09 X1000 (0.0-0.7); EOS% 0.9 % (0.0-10.0); HEMATOCRIT 22.4 % (42.0-52.0); HEMOGLOBIN 7.1 g/dL (14.0-18.0); IMM GRAN# 0.05 X1000 (0.0-0.04); IMM GRAN% 0.5 % (0.0-0.5); LYMPH# 0.88 X1000 (1.2-3.4); LYMPH% 9.1 % (20.5-51.1); MANUAL DIFF NEEDED? NO; MCH 28.7 PG (27-31); MCHC 31.7 g/dL (33-37); MCV 90.7 FL (81-99); MONO# 0.35 X1000 (0.11-0.59); MONO% 3.6 % (1.7-9.3); MPV 11.7 FL (7.4-10.4); NEUT% 85.7 % (42.2-75.2); PLT 85 X1000 (130-400); RBC 2.47 XMIL (4.7-6.1)
[2017-04-21] MEDS: MAXIPIME 1 GM in NS 50 ML IV SCH ×2 (09:31→22:18)
[2017-04-21 09:41] LABS: AGAP 14; ALBUMIN 1.8 g/dL (3.5-5.0); ALKALINE PHOSPHATASE 60 U/L (32-122); BUN 25 mg/dL (8-22); CALCIUM 7.7 mg/dL (8.8-10.2); CHLORIDE 104 mmol/L (98-107); COSMO 275; DIRECT BILIRUBIN < 0.20 mg/dL (0.00-0.20); GOT 11 U/L (10-34); GPT 8 U/L (10-44); MAGNESIUM 1.9 mg/dL (1.5-2.7); POTASSIUM 3.5 mmol/L (3.5-5.1); SODIUM 134 mmol/L (136-145); TCO2 16 mmol/L (25-35); TOTAL BILIRUBIN 0.41 mg/dL (0.20-1.00); TOTAL PROTEIN 4.6 g/dL (6.3-8.3)
[2017-04-21] MEDS: POTASSIUM CHLORIDE 60 MEQ in NS 500 ML IV SCH ×2 (10:34→16:33)
[2017-04-21] MEDS: MORPHINE IV PRN ×4 (10:35→23:28)
[2017-04-21] MEDS: 1/2 NS 1,000 ML IV SCH (13:22)
[2017-04-21] MEDS: LIPOSYN 20% 250 ML IV SCH (16:33)
[2017-04-22] MEDS: MORPHINE IV PRN ×12 (01:00→23:36)
[2017-04-22] MEDS: CLINIMIX E 4.25%-5% SOLUTION 1,000 ML IV SCH ×4 (02:06→20:27)
[2017-04-22 06:04] LABS: MANUAL DIFF NEEDED? NO
[2017-04-22 06:33] LABS: BASO% 0.4 % (0.0-0.8); EOS# 0.11 X1000 (0.0-0.7); EOS% 1.4 % (0.0-10.0); HEMATOCRIT 22.8 % (42.0-52.0); HEMOGLOBIN 7.2 g/dL (14.0-18.0); IMM GRAN# 0.07 X1000 (0.0-0.04); IMM GRAN% 0.9 % (0.0-0.5); LYMPH# 0.96 X1000 (1.2-3.4); LYMPH% 12.5 % (20.5-51.1); MCH 28.8 PG (27-31); MCHC 31.6 g/dL (33-37); MCV 91.2 FL (81-99); MONO# 0.38 X1000 (0.11-0.59); MONO% 4.9 % (1.7-9.3); MPV 11.7 FL (7.4-10.4); NEUT% 79.9 % (42.2-75.2); PLT 86 X1000 (130-400)
[2017-04-22 06:41] LABS: AGAP 17; BUN 32 mg/dL (8-22); CHLORIDE 103 mmol/L (98-107); COSMO 277; POTASSIUM 4.5 mmol/L (3.5-5.1); SODIUM 135 mmol/L (136-145); TCO2 15 mmol/L (25-35)
[2017-04-22] MEDS: MAXIPIME 1 GM in NS 50 ML IV SCH ×2 (10:06→20:27)
[2017-04-22] MEDS: VANCOMYCIN 1,300 MG in NS 250 ML IV SCH (11:51)
[2017-04-22] MEDS: 1/2 NS 1,000 ML IV SCH (11:51)
[2017-04-22] MEDS: LIPOSYN 20% 250 ML IV SCH (16:31)
[2017-04-23] MEDS: MORPHINE IV PRN ×4 (02:02→22:34)
[2017-04-23] MEDS: CLINIMIX E 4.25%-5% SOLUTION 1,000 ML IV SCH ×3 (05:47→22:34)
[2017-04-23 06:43] LABS: MANUAL DIFF NEEDED? NO
[2017-04-23 06:45] LABS: BASO% 0.3 % (0.0-0.8); EOS% 3.1 % (0.0-10.0); HEMATOCRIT 22.6 % (42.0-52.0); HEMOGLOBIN 7.3 g/dL (14.0-18.0); IMM GRAN# 0.05 X1000 (0.0-0.04); IMM GRAN% 0.8 % (0.0-0.5); LYMPH# 1.05 X1000 (1.2-3.4); LYMPH% 16.1 % (20.5-51.1); MCHC 32.3 g/dL (33-37); MCV 89.7 FL (81-99); MONO# 0.44 X1000 (0.11-0.59); MONO% 6.7 % (1.7-9.3); MPV 10.7 FL (7.4-10.4); PLT 71 X1000 (130-400); RBC 2.52 XMIL (4.7-6.1)
[2017-04-23 06:59] LABS: AGAP 16; BUN 38 mg/dL (8-22); CALCIUM 8.1 mg/dL (8.8-10.2); CHLORIDE 103 mmol/L (98-107); COSMO 279; SODIUM 135 mmol/L (136-145); TCO2 16 mmol/L (25-35)
[2017-04-23] MEDS: MAXIPIME 1 GM in NS 50 ML IV SCH ×2 (09:21→20:53)
[2017-04-23] MEDS: 1/2 NS 1,000 ML IV SCH (11:44)
[2017-04-23] MEDS: LIPOSYN 20% 250 ML IV SCH (16:40)
[2017-04-24] MEDS: CLINIMIX E 4.25%-5% SOLUTION 1,000 ML IV SCH ×3 (01:43→20:25)
[2017-04-24] MEDS: MORPHINE IV PRN ×3 (05:16→20:25)
[2017-04-24 06:06] LABS: MANUAL DIFF NEEDED? NO
[2017-04-24 06:34] LABS: BASO% 0.3 % (0.0-0.8); EOS# 0.17 X1000 (0.0-0.7); EOS% 2.6 % (0.0-10.0); HEMATOCRIT 23.7 % (42.0-52.0); HEMOGLOBIN 7.5 g/dL (14.0-18.0); IMM GRAN# 0.07 X1000 (0.0-0.04); IMM GRAN% 1.1 % (0.0-0.5); LYMPH# 0.94 X1000 (1.2-3.4); LYMPH% 14.6 % (20.5-51.1); MCH 28.2 PG (27-31); MCHC 31.6 g/dL (33-37); MCV 89.1 FL (81-99); MONO# 0.37 X1000 (0.11-0.59); MONO% 5.8 % (1.7-9.3); MPV 11.6 FL (7.4-10.4); NEUT% 75.6 % (42.2-75.2); PLT 74 X1000 (130-400); RBC 2.66 XMIL (4.7-6.1)
[2017-04-24 06:38] LABS: AGAP 16; BUN 41 mg/dL (8-22); CALCIUM 8.4 mg/dL (8.8-10.2); CHLORIDE 102 mmol/L (98-107); COSMO 280; SODIUM 135 mmol/L (136-145); TCO2 17 mmol/L (25-35)
[2017-04-24] MEDS: MAXIPIME 1 GM in NS 50 ML IV SCH ×2 (09:35→20:25)
[2017-04-24] MEDS: VANCOMYCIN 1,300 MG in NS 250 ML IV SCH (13:13)
[2017-04-24] MEDS: 1/2 NS 1,000 ML IV SCH (13:13)
[2017-04-24] MEDS: LIPOSYN 20% 250 ML IV SCH (16:11)
[2017-04-25] MEDS: MORPHINE IV PRN ×5 (02:49→15:35)
[2017-04-25] MEDS: CLINIMIX E 4.25%-5% SOLUTION 1,000 ML IV SCH ×2 (05:02→15:34)
[2017-04-25 06:19] LABS: MANUAL DIFF NEEDED? NO
[2017-04-25 06:38] LABS: BASO% 0.5 % (0.0-0.8); EOS# 0.22 X1000 (0.0-0.7); EOS% 3.4 % (0.0-10.0); HEMATOCRIT 22.3 % (42.0-52.0); IMM GRAN# 0.06 X1000 (0.0-0.04); IMM GRAN% 0.9 % (0.0-0.5); LYMPH# 1.04 X1000 (1.2-3.4); LYMPH% 15.9 % (20.5-51.1); MCH 28.5 PG (27-31); MCHC 31.4 g/dL (33-37); MCV 90.7 FL (81-99); MONO# 0.33 X1000 (0.11-0.59); MONO% 5.1 % (1.7-9.3); MPV 11.9 FL (7.4-10.4); NEUT% 74.2 % (42.2-75.2); PLT 72 X1000 (130-400); RBC 2.46 XMIL (4.7-6.1)
[2017-04-25 06:44] LABS: AGAP 16; BUN 41 mg/dL (8-22); CALCIUM 8.2 mg/dL (8.8-10.2); CHLORIDE 103 mmol/L (98-107); COSMO 284; POTASSIUM 4.1 mmol/L (3.5-5.1); SODIUM 137 mmol/L (136-145); TCO2 18 mmol/L (25-35)
[2017-04-25] MEDS: MAXIPIME 1 GM in NS 50 ML IV SCH ×2 (08:04→23:03)
[2017-04-25] MEDS: 1/2 NS 1,000 ML IV SCH (13:25)
[2017-04-25] MEDS: VANCOMYCIN 1,300 MG in NS 250 ML IV SCH (13:26)
[2017-04-25] MEDS: LIPOSYN 20% 250 ML IV SCH (15:35)
[2017-04-25] MEDS ORDERED: NS 250 ML ONE (16:31)
--- NOTE | 2017-04-25 19:00 | Diag Imaging Result Doc PS360 ---
EXAM: CHEST-1 VIEW HISTORY: pneumonia TECHNIQUE: AP portable at 1835 COMMENT: Compared to 04/21/2017 there has been improvement of the opacities in the right lower lobe. There is some increase in opacification in the left apex however. IMPRESSION: Improved right lower lobe pneumonia. Atelectasis versus pneumonia left upper lobe. Electronically signed by Lio Mejias 04/25/2017 6:57 PM
[2017-04-26] MEDS: CLINIMIX E 4.25%-5% SOLUTION 1,000 ML IV SCH ×2 (03:38→15:55)
[2017-04-26 06:47] LABS: BASO% 0.1 % (0.0-0.8); EOS# 0.17 X1000 (0.0-0.7); EOS% 2.2 % (0.0-10.0); HEMOGLOBIN 8.9 g/dL (14.0-18.0); IMM GRAN# 0.07 X1000 (0.0-0.04); IMM GRAN% 0.9 % (0.0-0.5); LYMPH# 0.72 X1000 (1.2-3.4); LYMPH% 9.2 % (20.5-51.1); MANUAL DIFF NEEDED? YES; MCH 27.9 PG (27-31); MCV 84.6 FL (81-99); MONO# 0.39 X1000 (0.11-0.59); NEUT% 82.6 % (42.2-75.2); PLT 53 X1000 (130-400); RBC 3.19 XMIL (4.7-6.1)
[2017-04-26 06:55] LABS: AGAP 17; BUN 45 mg/dL (8-22); CALCIUM 8.2 mg/dL (8.8-10.2); CHLORIDE 103 mmol/L (98-107); COSMO 285; POTASSIUM 3.9 mmol/L (3.5-5.1); SODIUM 137 mmol/L (136-145); TCO2 17 mmol/L (25-35)
[2017-04-26 07:30] LABS: BANDS 6 % (0-1); LYMPHS 8 % (21-51); MONO 4 % (1-9)
[2017-04-26] MEDS: MAXIPIME 1 GM in NS 50 ML IV SCH ×2 (11:50→23:24)
[2017-04-26] MEDS: 1/2 NS 1,000 ML IV SCH ×2 (12:32→20:06)
[2017-04-26] MEDS: VANCOMYCIN 1,300 MG in NS 250 ML IV SCH (13:45)
[2017-04-26] MEDS: LIPOSYN 20% 250 ML IV SCH (16:43)
[2017-04-26] MEDS: MORPHINE IV PRN ×2 (20:06→23:21)
[2017-04-27] MEDS: CLINIMIX E 4.25%-5% SOLUTION 1,000 ML IV SCH ×3 (06:04→20:54)
[2017-04-27 07:03] LABS: BASO% 0.4 % (0.0-0.8); EOS# 0.11 X1000 (0.0-0.7); EOS% 1.6 % (0.0-10.0); HEMOGLOBIN 8.9 g/dL (14.0-18.0); IMM GRAN# 0.09 X1000 (0.0-0.04); IMM GRAN% 1.3 % (0.0-0.5); LYMPH# 0.79 X1000 (1.2-3.4); LYMPH% 11.8 % (20.5-51.1); MANUAL DIFF NEEDED? YES; MCH 27.6 PG (27-31); MCV 83.6 FL (81-99); NEUT% 78.9 % (42.2-75.2); PLT 43 X1000 (130-400); RBC 3.23 XMIL (4.7-6.1)
[2017-04-27 07:04] LABS: AGAP 18; BUN 45 mg/dL (8-22); CALCIUM 7.8 mg/dL (8.8-10.2); CHLORIDE 102 mmol/L (98-107); COSMO 285; POTASSIUM 3.6 mmol/L (3.5-5.1); SODIUM 137 mmol/L (136-145); TCO2 17 mmol/L (25-35)
[2017-04-27 07:25] LABS: BANDS 4 % (0-1); EOS 2 % (1-10); LYMPHS 14 % (21-51); MONO 2 % (1-9)
[2017-04-27 07:26] LABS: HYPOCHROM 1+
[2017-04-27] MEDS: MAXIPIME 1 GM in NS 50 ML IV SCH (10:40)
[2017-04-27] MEDS: MORPHINE IV PRN ×2 (13:20→19:10)
[2017-04-27] MEDS: 1/2 NS 1,000 ML IV SCH (13:49)
[2017-04-27] MEDS: LIPOSYN 20% 250 ML IV SCH (15:45)
[2017-04-27] MEDS: VANCOMYCIN 1,300 MG in NS 250 ML IV SCH (15:45)
[2017-04-27] MEDS ORDERED: VANCOMYCIN IV PER PHARMACY MISC SCH (17:45)
[2017-04-28] MEDS: MORPHINE IV PRN ×3 (02:42→18:40)
[2017-04-28] MEDS: CLINIMIX E 4.25%-5% SOLUTION 1,000 ML IV SCH ×2 (02:42→13:02)
[2017-04-28] MEDS: MAXIPIME 1 GM in NS 50 ML IV SCH ×3 (02:43→20:37)
[2017-04-28] MEDS: 1/2 NS 1,000 ML IV SCH ×2 (02:44→11:21)
[2017-04-28] MEDS: SANTYL OINT TOP SCH ×2 (03:30→08:03)
[2017-04-28] MEDS: LIPOSYN 20% 250 ML IV SCH (15:56)
[2017-04-28] MEDS ORDERED: VANCOMYCIN 1,300 MG in NS 250 ML IV SCH (16:00)
[2017-04-28 20:02] VITALS: BP 54/29
== END 2017-04-28 21:39 | disposition expired ==
LOC: 3N 14:45 → SUATTDRO 14:45 → 3S 04-15 12:48 → 3N 04-21 10:49
PROVIDERS: ATTEND Internal Medicine